=== PATIENT | female | born 1980 | race Caucasian/White ===

== ENCOUNTER 2020-01-19 16:18 | Outpatient (REF) | payer OTHER, SELFPAY ==
--- NOTE | 2020-01-19 16:28 | MM_ITS ---
EXAMINATION: MM SCREENING DIGITAL BREAST TOMOSYNTHESIS, BILATERAL CLINICAL INFORMATION: Screening. Asymptomatic. No prior breast imaging. Age 39. No known family history breast cancer. The lifetime risk of breast cancer based on the Tyrer-Cuzick Model is 11%. COMPARISON: None (current study represents initial baseline exam). TECHNIQUE: Digital breast tomosynthesis is performed in both the craniocaudal and mediolateral oblique views along with computer-aided detection (CAD). Synthesized 2D images are generated from the tomosynthesis. FINDINGS: There are scattered areas of fibroglandular density (ACR BI-RADS breast composition Category b). There are no significant masses, abnormal calcifications, or other abnormalities. The axilla and skin contours are unremarkable. MM/MM tomosynthesis screening BI IMPRESSION: No mammographic evidence of malignancy. ASSESSMENT: BI-RADS 1: Negative RECOMMENDATION: Routine annual mammography screening. This patient's information was entered into a reminder system with a target due date for their next mammogram.
== END 2020-01-19 16:19 | disposition home or self-care (01) ==
LOC: HO.MAMMO 16:18
PROVIDERS: PCP Internal Medicine; Visit Provider Internal Medicine
DX: Z12.31 Encounter for screening mammogram for malignant neoplasm of breast (principal)
CPT/HCPCS: 77063; 77067

== ENCOUNTER 2021-02-09 08:01 | Outpatient (REF) | payer OTHER, SELFPAY ==
--- NOTE | ~2021-02-09 | MM_ITS ---
EXAMINATION: MM SCREENING DIGITAL BREAST TOMOSYNTHESIS, BILATERAL CLINICAL INFORMATION: Screening. Asymptomatic. The lifetime risk of breast cancer based on the Tyrer-Cuzick Model is 13%. COMPARISON: Mammography: 01/19/2020 (baseline) TECHNIQUE: Digital breast tomosynthesis is performed in both the craniocaudal and mediolateral oblique views along with computer-aided detection (CAD). Synthesized 2D images are generated from the tomosynthesis. FINDINGS: There are scattered areas of fibroglandular density (ACR BI-RADS breast composition Category b). There are no significant masses, abnormal calcifications, or other abnormalities. Parenchymal pattern is similar to prior baseline exam. The axilla and skin contours are unremarkable. No significant changes. MM/MM tomosynthesis screening BI IMPRESSION: No mammographic evidence of malignancy. ASSESSMENT: BI-RADS 1: Negative RECOMMENDATION: Routine annual mammography screening. This patient's information was entered into a reminder system with a target due date for their next mammogram.
== END 2021-02-09 08:02 | disposition home or self-care (01) ==
LOC: HO.MAMMO 08:01
PROVIDERS: Visit Provider Internal Medicine
DX: Z12.31 Encounter for screening mammogram for malignant neoplasm of breast (principal)
CPT/HCPCS: 77063; 77067

== ENCOUNTER 2021-12-30 14:00 | Outpatient (RCR) | payer OTHER, SELFPAY | END 2022-01-02 13:43 | disposition home or self-care (01) | LOC: HO.PT 14:00 | PROVIDERS: PCP Internal Medicine; Visit Provider Podiatrist | DX: M76.62 Achilles tendinitis, left leg (principal); M24.272 Disorder of ligament, left ankle | CPT/HCPCS: 97035; 97110; 97112; 97140; 97161; 97530 ==

== ENCOUNTER 2022-02-14 07:58 | Outpatient (REF) | payer OTHER, SELFPAY ==
--- NOTE | ~2022-02-14 | MM_ITS ---
EXAMINATION: MM SCREENING DIGITAL BREAST TOMOSYNTHESIS, BILATERAL CLINICAL INFORMATION: Screening. Asymptomatic. The lifetime risk of breast cancer based on the Tyrer-Cuzick Model is 18.3%. COMPARISON: Mammography: February 09, 2021 and January 19, 2020 TECHNIQUE: Digital breast tomosynthesis is performed in both the craniocaudal and mediolateral oblique views along with computer-aided detection (CAD). Synthesized 2D images are generated from the tomosynthesis. FINDINGS: The breasts are heterogeneously dense, which may obscure small masses (ACR BI-RADS breast composition Category c). There are no significant masses, abnormal calcifications, or other abnormalities. MM/MM tomosynthesis screening BI IMPRESSION: No significant changes from prior exam. ASSESSMENT: BI-RADS 1: Negative RECOMMENDATION: Routine annual mammography screening. This patient's information was entered into a reminder system with a target due date for their next mammogram.
== END 2022-02-14 07:59 | disposition home or self-care (01) ==
LOC: HO.MAMMO 07:58
PROVIDERS: PCP Internal Medicine; Visit Provider Internal Medicine
DX: Z12.31 Encounter for screening mammogram for malignant neoplasm of breast (principal)
CPT/HCPCS: 77063; 77067

== ENCOUNTER 2022-11-30 18:50 | Outpatient (REF) | payer OTHER, SELFPAY ==
--- NOTE | ~2022-11-30 | MR_ITS ---
EXAMINATION: MR BREAST WITHOUT AND WITH CONTRAST, BILATERAL CLINICAL INFORMATION: High-risk screening. Family history of breast cancer. Dense breasts. COMPARISON: Mammography 02/14/2022 TECHNIQUE: Imaging was performed with a dedicated breast coil. Prior to the administration of contrast, bilateral axial T1 and bilateral axial T2 weighted sequences were obtained. After the uneventful administration of?8 mL of Gadavist, dynamic contrast-enhanced VIBRANT series through the breasts was attempted. Mapping error precluded postcontrast acquisition or subtracted sequences. Technically incomplete examination. FINDINGS: The breasts are comprised of heterogeneous fiber glandular parenchyma. No postcontrast imaging obtained. LEFT BREAST: On noncontrast sequences no gross abnormality. RIGHT BREAST: On noncontrast sequences, no gross abnormality. There is no suspicious internal mammary chain or axillary adenopathy. Limited views of the chest and abdomen are unremarkable. MR/MR breast BI wo/w con IMPRESSION: Technically incomplete examination. Repeat examination required. ASSESSMENT: LEFT BREAST: BI-RADS 0, incomplete exam. RIGHT BREAST: BI-RADS 0, incomplete exam. RECOMMENDATIONS: Repeat examination.
== END 2022-11-30 18:51 | disposition home or self-care (01) ==
LOC: HO.MRI 18:50
PROVIDERS: PCP Student in an Organized Health Care Education/Training Program; Visit Provider Obstetrics & Gynecology
DX: Z91.89 Other specified personal risk factors, not elsewhere classified (principal)
CPT/HCPCS: 77049; A9585

== ENCOUNTER 2023-02-21 08:15 | Outpatient (REF) | payer OTHER, SELFPAY | END 2023-02-21 08:16 | disposition home or self-care (01) | LOC: HO.MAMMO 08:15 | PROVIDERS: PCP Student in an Organized Health Care Education/Training Program; Visit Provider Internal Medicine | DX: Z12.31 Encounter for screening mammogram for malignant neoplasm of breast (principal) | CPT/HCPCS: 77063; 77067 ==

== ENCOUNTER → 2023-02-21 08:15 | Outpatient (BNV) | payer OTHER, SELFPAY | PROVIDERS: PCP Student in an Organized Health Care Education/Training Program; Visit Provider Radiology Diagnostic Radiology | DX: Z12.31 Encounter for screening mammogram for malignant neoplasm of breast (principal) | CPT/HCPCS: 77063; 77067 ==

== ENCOUNTER 2023-05-17 08:22 | Outpatient (REF) | payer OTHER, SELFPAY | END 2023-05-17 08:23 | disposition home or self-care (01) | LOC: HO.MRI 08:22 | PROVIDERS: PCP Student in an Organized Health Care Education/Training Program; Visit Provider Obstetrics & Gynecology | DX: Z13.89 Encounter for screening for other disorder (principal) ==

== ENCOUNTER 2023-11-26 16:19 | Outpatient (REF) | payer OTHER, SELFPAY ==
[2023-11-27 18:28] LABS: Epstein Barr Virus Early Ag Ab <9.00 U/mL
[2023-11-27 22:23] LABS: EBV-VCA IgM Ab <36.00 U/mL
== END 2023-11-26 16:20 | disposition home or self-care (01) ==
LOC: HO.LAB 16:19
PROVIDERS: Visit Provider Family Medicine
DX: R53.83 Other fatigue (principal); Z77.120 Contact with and (suspected) exposure to mold (toxic)
CPT/HCPCS: 36415; 83520; 86663; 86664; 86665

== ENCOUNTER 2024-02-26 08:00 | Outpatient (REF) | payer OTHER, SELFPAY | END 2024-02-26 08:01 | disposition home or self-care (01) | LOC: HO.MAMMO 08:00 | PROVIDERS: PCP Nurse Practitioner Family; Visit Provider Student in an Organized Health Care Education/Training Program | DX: Z12.31 Encounter for screening mammogram for malignant neoplasm of breast (principal) | CPT/HCPCS: 77063; 77067 ==

== ENCOUNTER → 2024-02-26 08:30 | Outpatient (BNV) | payer OTHER, SELFPAY | PROVIDERS: PCP Nurse Practitioner Family; Visit Provider Internal Medicine | DX: Z12.31 Encounter for screening mammogram for malignant neoplasm of breast (principal) | CPT/HCPCS: 77063; 77067 ==

== ENCOUNTER 2024-02-29 08:46 | Outpatient (AMB) | payer OTHER, SELFPAY ==
--- NOTE | 2024-02-29 08:49 | AM.OFFWIN_ITS ---
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 History of Present Illness - The patient is a 43-year-old female pr esenting with a concern of ear blockage sensation and persistent allergies. - The symptom of ear blockage presents b ilaterally with greater severity on the left. The patient describes it as a cotton feeling. - Discussion reveals a long-standing his tory of allergic rhinitis, with management including antihistamines and corticosteroid nasal sprays. - Environmental allergies include sensit ivity to mold, and the patient has a history of discontinued allergy shots due to lack of efficacy. - The patient reports impaired hearing a ffecting her occupational performance. - The presence of pets (dogs and cats) i s noted, though not directly linked to symptom exacerbation. - allergy to mold patient is requesting a referral to a specialist, she already has appointment Review of Systems - Ears: Reports sensation of blockage, p articularly on the left side. - Allergic/Immunologic: Reports history of allergic rhinitis and mold allergy; Denies recent onset or change in known allergies. 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 Management of the chronic allergic rhinitis and mold allergy includes persistent use of antihistamines and corticosteroid sprays, with continued reliance on environmental modifications like air purifiers. A referral for integrative medical professional placed as per patient's request Ear irrigation performed left ear with good results [facility] Social History Patient Tobacco Use Status: Never used Tobacco Review of Systems Const All systems reviewed & are unremarkable except as noted in HPI and below Physical Exam Vital Signs: Last Vital Signs Pulse 82 02/29/24 08:51 BP 122/80 02/29/24 08:51 Pulse Ox 99 02/29/24 08:51 Oxygen Delivery Method Room Air 02/29/24 08:51 BMI result Body Mass Index 28.3 Const General: no acute distress Orientation/consciousness: patient oriented x3 HEENT Other: Left ear blocked with cerumen Eyes General: appearance normal, both eyes and all related structures Resp Effort & Inspection: normal respiratory effort and able to speak in complete sentences Neuro General: patient oriented x3 Psych Mental Status: mental status grossly normal Office Procedures Cerumen Removal From which ear canal was the cerumen removed: left Removal: irrigation Notes: patient tolerated procedure well [id number] Irrigation/Lavage Assessment & Plan Assessment & Plan (1) Allergy to mold: Code(s): Z91.048 - Other nonmedicinal substance allergy status (2) Impacted cerumen, left ear: Code(s): H61.22 - Impacted cerumen, left ear (3) Hearing difficulty of left ear: Code(s): H91.92 - Unspecified hearing loss, left ear (4) Allergic contact dermatitis due to animal (cat) (dog) dander: Code(s): L23.81 - Allergic contact dermatitis due to animal (cat) (dog) dander (5) Chronic nasal congestion: Code(s): R09.81 - Nasal congestion Plan Chief Complaint The patient presents with ear blockage sensation and persistent allergies. History of Present Illness - The patient is a 43-year-old female presenting with a concern of ear blockage sensation and persistent allergies. - The symptom of ear blockage presents bilaterally with greater severity on the left. The patient describes it as a cotton feeling. - Discussion reveals a long-standing history of allergic rhinitis, with management including antihistamines and corticosteroid nasal sprays. - Environmental allergies include sensitivity to mold, and the patient has a history of discontinued allergy shots due to lack of efficacy. - The patient reports impaired hearing affecting her occupational performance. - The presence of pets (dogs and cats) is noted, though not directly linked to symptom exacerbation. - allergy to mold patient is requesting a referral to a specialist, she already has appointment Review of Systems - Ears: Reports sensation of blockage, particularly on the left side. - Allergic/Immunologic: Reports history of allergic rhinitis and mold allergy; Denies recent onset or change in known allergies. 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 Management of the chronic allergic rhinitis and mold allergy includes persistent use of antihistamines and corticosteroid sprays, with continued reliance on environmental modifications like air purifiers. A referral for integrative medical professional placed as per patient's request Ear irrigation performed left ear with good results Orders: Referrals Integrative Medicine Referral Z91.048 - Other nonmedicinal substance allergy status Coding Level of Care Code New Pt Level 4 (84461) Diagnoses Allergy to mold Z91.048 Impacted cerumen, left ear H61.22 Hearing difficulty of left ear H91.92 Allergic contact dermatitis due to animal (cat) (dog) dander L23.81 Chronic nasal congestion R09.81 CPT Codes Office Procedure - CPT: 88880-Kso Irrigation/Lavage ([id number])
[2024-02-29 08:51] VITALS: BP 122/80; PULSE 82; O2SAT 99; BMI 28.3
== END 2024-02-29 09:33 | disposition home or self-care (01) ==
PROVIDERS: PCP Nurse Practitioner Family; Visit Provider Internal Medicine
DX: R09.81 Nasal congestion (principal); H91.92 Unspecified hearing loss, left ear; Z91.048 Other nonmedicinal substance allergy status; L23.81 Allergic contact dermatitis due to animal (cat) (dog) dander; H61.22 Impacted cerumen, left ear

== ENCOUNTER → 2024-02-29 08:46 | Outpatient (BNVA) | payer OTHER, SELFPAY | PROVIDERS: PCP Nurse Practitioner Family; Visit Provider Internal Medicine | DX: H61.22 Impacted cerumen, left ear (principal); L23.81 Allergic contact dermatitis due to animal (cat) (dog) dander; R09.81 Nasal congestion; Z91.048 Other nonmedicinal substance allergy status | CPT/HCPCS: 69209 ==

== ENCOUNTER 2024-03-28 12:37 | Outpatient (AMB) | payer OTHER, SELFPAY ==
[2024-03-28 12:39] VITALS: BP 146/90; PULSE 84; RESP 16; TEMP 36.9; O2SAT 99; BMI 28.2
--- NOTE | 2024-03-28 12:39 | MHC.PC.OV ---
Vital Signs 03/28/24 12:39 Height 5 ft 7 in Weight 180 lb BMI 28.2 BP 146/90 H Blood Pressure Location Lt brachial Position Sitting Respiration 16 Pulse 84 Pulse Source Pulse Oximeter Temp 98.4 F Temp Source Oral Pulse Oximetry (%) 99 Intake Visit Reasons: Data [employer] Transfer from [facility] Allergies Corticosteroids (Glucocorticoids) Adverse Reaction (Verified 03/28/24 12:44) rash Medication List - Last Reconciled 03/28/24 by Pasquale Duggan MD ethynodiol diac-eth estradiol 1-50 mg-mcg ([place]) tabs PO thyroid (pork) ([place] Thyroid) 60 mg PO DAILY Tobacco use date assessed: 03/28/24 Dental Screening Dental Screen Date: 03/28/24 Did you have a dental visit in the last 12 months?: Yes Did you have a dental problem in the last 6 months where you did not have access to dental care?: Yes Was dental information given to patient?: Patient has dentist 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 History - Thyroid disorder, currently managed with 60 micrograms of thyroid medication, with biannual monitoring of blood levels to assess and adjust as necessary. - Follow-up care for mold intoxication is ongoing, which involves seeing a specialist at [facility] medicine, patient is requesting a referral. - Continues to manage allergies with umol-wav-hyqkwsz medication. - continued to feel fullness in both ears secondary to allergies Health Maintenance - Patient-reported vaccinations are up to date except for a tetanus vaccination, which was last administered in 2011 and will be updated during this visit. - Received an annual flu shot and COVID vaccine at the [email or web address] event. 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 - Reports no nutritional deficiencies or concerns with current health or activity level stated during the conversation. Patient Instructions - Follow fasting instructions for lab tests including withholding food for 10 hours while allowing water and daily medications. - Collect blood work next door without needing an appointment or paper; lab open Sunday to Sunday. - Receive tetanus booster as it is due. - continue allergy medication [id number]-hqqumnc Review of Systems - General: Denies nausea, vomiting, diarrhea, headaches, dizziness. - Dermatology: Denies rashes or concerning moles; had a flu and COVID shot. - Neurological: No headaches no dizziness - Ear nose throat: No sore throat no hearing difficulty no ear pain - Cardiovascular: No syncope, no chest pain, no palpitations - Gastrointestinal: No nausea vomiting or diarrhea - Endocrine: No polyuria polydipsia no heat intolerance - Genitourinary: No dysuria Physical Exam General: Cooperative, healthy appearing, comfortable, no acute distress Orientation: Patient oriented x3 Limitations: None Head: Normal to inspection Ears: Within normal limit visually, slight wax buildup noted, no significant issues Nose: Normal external nose present Face and sinus: Normal facial exam Eyes: Appearance normal, extraocular movement intact pupils reactive Neck: Normal visual inspection and supple Respiratory: Normal respiratory effort and able to speak in complete sentences. Clear to auscultation, no stridor Breast exam through OBGYN Cardiovascular: S1 and S2 GI: Normal to inspection. Soft to palpation and nontender Skin: Turgor normal, no acute findings, no rashes or moles that need to be checked Neuro: Patient oriented x3, motor sensory intact, balance intact, tandem pass Extremities: Normal to inspection [facility] Social History Housing: House Patient Tobacco Use Status: Never used Tobacco e-Cigarette/Vaping Use: Never Used service: No Current occupational status: employed Cognitive needs: No Hearing needs: No Vision needs: Yes Questionnaire PHQ-9 Over the last 2 weeks, how often have you been bothered by any of the following problems? 1. Little interest or pleasure in doing things: not at all 2. Feeling down, depressed, or hopeless: not at all 3. Trouble falling or staying asleep, or sleeping too much: not at all 4. Feeling tired or having little energy: nearly every day 5. Poor appetite or overeating: not at all 6. Feeling bad about yourself - or that you are a failure or have let yourself or your family down: not at all 7. Trouble concentrating on things, such as reading the newspaper or watching television: not at all 8. Moving or speaking so slowly that other people could have noticed. Or the opposite - being so fidgety or restless that you have been moving around a lot more than usual: not at all 9. Thoughts that you would be better off or of hurting yourself in some way: not at all Total score: 3 Depression Screening Interpretation: Negative Depression Screening Done: Yes 18574 - PHQ-9 Billing: Yes Source: Developed by Drs. Rosales Anthony, Megha Barboza, Lázaro Colon and colleagues, with an educational radha from [employer]. Thrive Questionnaire Date Thrive assessed: 03/28/24 I am a: Patient What is your living situation today?: I have a steady place to live Within the past 12 months, did the food you bought not last and you didn't have the money to get more?: Never true Within the past 12 months, did you worry whether your food would run out before you got money to buy more?: Never true Do you have trouble paying for medicines?: No Do you have trouble getting transportation to medical appointments?: No Do you have trouble paying your heating and electricity bill?: No Do you have trouble taking care of your child, family member or friend?: No Do you have trouble with day-to-day activities such as bathing, preparing meals, shopping, managing finances, etc.?: No Are you currently unemployed and looking for a job?: No Are you interested in more education?: No Please select the resources that you would like help with: None Currently or been in a relationship where the following occur: No concerns reported THRIVE Score: 0 AUDIT C Alcohol Use Questionnaire (AUDIT-C) 1. How often do you have a drink containing alcohol?: Never Total Score: 0 JOVANNY-7 AMB Questionnaire JOVANNY-7 Date JOVANNY - 7 assessed: 03/28/24 Feeling nervous, anxious, or on edge: 0 = Not at all Not being able to stop or control worryin = Not at all Worrying too much about different things: 0 = Not at all Trouble relaxin = Not at all Being so restless that it is hard to sit still: 0 = Not at all Becoming easily annoyed or irritable: 0 = Not at all Feeling afraid as if something awful might happen: 0 = Not at all Total JOVANNY-7 score (0-4 normal; 5-9 mild; 10-14 moderate; 15-21 severe): 0 Source: Developed by Drs. Rosales Anthony, Megha Barboza, Lázaro Colon and colleagues, with an educational radha from [employer]. JOVANNY-7 Assessment Billing JOVANNY-7 Assessment Tool: JOVANNY-7 Assessment 46096 Physical exam (Primary Care) Vital Signs: Last Vital Signs Temp 98.4 F 03/28/24 12:39 Pulse 84 03/28/24 12:39 Resp 16 03/28/24 12:39 BP 146/90 H 03/28/24 12:39 Pulse Ox 99 03/28/24 12:39 BMI result Body Mass Index 28.2 Tobacco/Smoking Status: Tobacco use Status Tobacco use date assessed 03/28/24 03/28/24 12:45 Patient Tobacco Use Status Never used Tobacco 03/28/24 12:45 e-Cigarette/Vaping Use Never Used 03/28/24 12:45 PHQ-9: PHQ-9 Score PHQ-9: Total score 3 03/28/24 13:06 Depression Screening Interpretation: Negative Thrive Assessment: Date of Thrive Assessment Date Thrive assessed 03/28/24 03/28/24 12:45 Currently or been in a relationship where the following occur: No concerns reported Immunizations Boostrix Tdap 2.5 Lf unit-8 mcg-5 Lf/0.5 mL intramuscular syringe Performing Provider: Pasquale Duggan MD Performing Location: [facility] [facility] Administered by: LEANDRO Parada on 03/28/24 13:05 Dose Route Admin Location Dispensed Lot Number Expiration Date [facility] Internal Medicine Hospitalist 0.5 mL IM Left Deltoid 0.5 mL [id number] 03/19/26 [id number] [employer] VIS Given Date VIS Provided VIS Publication Date 03/28/24 Single Vaccine 20 Eligibility Eligibility Date Funding Source Not [facility] Eligible 03/28/24 Private Coding Level of Care Code New Pt Level 3 (46345) New Pt Prev Care 40-64y(02029) Diagnoses Encounter for general adult medical examination with abnormal findings Z00.01 Chronic nasal congestion R09.81 Allergy to mold Z91.048 Other specified hypothyroidism E03.8 Overweight (BMI 25.0-29.9) E66.3 Fullness in both ears H93.8X3 Additional Codes PHQ-9 - 45030 - PHQ-9 Billing: Yes ([id number]) JOVANNY-7 Assessment Billing - JOVANNY-7 Assessment Tool: JOVANNY-7 Assessment 47173 ([id number]) Assessment & Plan Assessment & Plan (1) Encounter for general adult medical examination with abnormal findings: Code(s): Z00.01 - Encounter for general adult medical examination with abnormal findings Category: Medical (2) Chronic nasal congestion: Code(s): R09.81 - Nasal congestion Category: Medical (3) Allergy to mold: Code(s): Z91.048 - Other nonmedicinal substance allergy status Category: Medical (4) Other specified hypothyroidism: Code(s): E03.8 - Other specified hypothyroidism Category: Medical (5) Overweight (BMI 25.0-29.9): Code(s): E66.3 - Overweight Category: Medical (6) Fullness in both ears: Code(s): H93.8X3 - Other specified disorders of ear, bilateral Category: Medical Plan Chief Complaint The patient is here for an annual physical examination and to establish care. History - Thyroid disorder, currently managed with 60 micrograms of thyroid medication, with biannual monitoring of blood levels to assess and adjust as necessary. - Follow-up care for mold intoxication is ongoing, which involves seeing a specialist at [facility] medicine, patient is requesting a referral. - Continues to manage allergies with jril-zyu-xoomxts medication. - continued to feel fullness in both ears secondary to allergies Health Maintenance - Patient-reported vaccinations are up to date except for a tetanus vaccination, which was last administered in 2011 and will be updated during this visit. - Received an annual flu shot and COVID vaccine at the [email or web address] event. 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 - Reports no nutritional deficiencies or concerns with current health or activity level stated during the conversation. Patient Instructions - Follow fasting instructions for lab tests including withholding food for 10 hours while allowing water and daily medications. - Collect blood work next door without needing an appointment or paper; lab open Sunday to Sunday. - Receive tetanus booster as it is due. - continue allergy medication ykvz-spd-ynsesxg Orders: Orders Complete Blood Count Auto Diff Today E03.8 - Other specified hypothyroidism, E66.3 - Overweight, R09.81 - Nasal congestion, Z00.01 - Encounter for general adult medical examination with abnormal findings, Z91.048 - Other nonmedicinal substance allergy status Comprehensive [place]. Panel Fast Today E03.8 - Other specified hypothyroidism, E66.3 - Overweight, R09.81 - Nasal congestion, Z00.01 - Encounter for general adult medical examination with abnormal findings, Z91.048 - Other nonmedicinal substance allergy status Vitamin D 25-OH (D2 and D3) Today E03.8 - Other specified hypothyroidism, E66.3 - Overweight, R09.81 - Nasal congestion, Z00.01 - Encounter for general adult medical examination with abnormal findings, Z91.048 - Other nonmedicinal substance allergy status TDaP Immunization Today Z23 - Encounter for immunization Lipid Panel Today E03.8 - Other specified hypothyroidism, E66.3 - Overweight, R09.81 - Nasal congestion, Z00.01 - Encounter for general adult medical examination with abnormal findings, Z91.048 - Other nonmedicinal substance allergy status TSH reflex Free T4 Today E03.8 - Other specified hypothyroidism, E66.3 - Overweight, R09.81 - Nasal congestion, Z00.01 - Encounter for general adult medical examination with abnormal findings, Z91.048 - Other nonmedicinal substance allergy status UA CC w/rflx Micro + Cult Today E03.8 - Other specified hypothyroidism, E66.3 - Overweight, R09.81 - Nasal congestion, Z00.01 - Encounter for general adult medical examination with abnormal findings, Z91.048 - Other nonmedicinal substance allergy status IgE Antibody (Anti-IgE IgG) Today E03.8 - Other specified hypothyroidism, E66.3 - Overweight, R09.81 - Nasal congestion, Z00.01 - Encounter for general adult medical examination with abnormal findings, Z91.048 - Other nonmedicinal substance allergy status Referrals [facility] Referral Z91.048 - Other nonmedicinal substance allergy status Medications: New thyroid (pork) ([place] Thyroid) 60 mg PO DAILY 90 tabs 1RF
--- OUTSIDE RECORDS SUMMARY | 2024-03-28 12:55 | XMS_ITS | Clinical Summary ---
Author Organization [facility] [address] [facility] Address [address] [place] [address] Phone Care Team Providers Care Varnisher Plasticoater Name Role Phone Leigh Ann Mitchell MD Primary Care Provider [phone] Allergies Active Allergy Reactions Criticality Noted Date Comments Amoxicillin High 05/31/2022 Severe diarrhea Other Other Low 06/27/2007 Seasonal Allergies Corticosteroids Medications Medication Sig Dispensed Refills Start Date End Date Status ergocalciferol, vitamin D2, (VITAMIN D2 ORAL) Take by mouth. Active magnesium oxide-Mg AA chelate (Magnesium, oxide/AA chelate,) 300 mg capsule Take by mouth. Active ethynodiol-ethin yl estradiol (KELLNOR 1/50,ZOVIA 1/50E) 1-50 mg-mcg per tablet Take 1 Tablet by mouth daily for 360 days. Do not take placebos, Pt needs to have continous active pills Active fluticasone propionate (FLONASE) 50 mcg/actuation nasal spray 2 Sprays by Each Nare route daily for 360 days. Active levocetirizine (XYZAL) 5 mg tablet Take 5 mg by mouth every evening. Active thyroid, pork, (ARMOUR THYROID) 60 mg tablet TAKE 1 TABLET BY MOUTH EVERY DAY Active doxycycline (ADOXA) 100 mg tablet Take 1 tablet (100 mg total) by mouth 2 (two) times a day. for 10 days 05/07/2023 Active benzonatate (TESSALON) 100 mg capsule TAKE 1 CAPSULE BY MOUTH 3 TIMES DAILY NEEDED FOR COUGH FOR UP TO 7 DAYS. 07/01/2023 Active ethynodiol-ethin yl estradiol (KELNOR 35,ZOVIA 35E) 1-35 mg-mcg per tablet Take 1 tablet by mouth 1 (one) time each day. 28 tablet 03/07/2024 03/06/2025 Active ASCORBIC ACID, VITAMIN C, ORAL Take by mouth. 03/07/2024 Disco ntinued vit B complex no.12/niacin,B3, (VITAMIN B COMPLEX NO.12-NIACIN ORAL) Take by mouth. 03/07/2024 Discontinu ed Active Problems Problem Noted Date Diagnosed Date COVID-19 12/06/2021 Subclinical hypothyroidism 04/17/2019 Chronic fatigue syndrome 11/14/2018 Thyroid nodule 10/11/2018 Overview (01/18/2024): 09/2018, benign in appearance, recommended f/u US one year Obesity (BMI 30.0-34.9) 12/20/2016 IBS (irritable bowel syndrome) 02/22/2016 Overview (01/18/2024): Diarrhea predominant, childhood onset. Florinda Rosado infection 01/17/2016 Raynaud disease 04/12/2010 Genital herpes 03/17/2008 Allergic rhinitis 04/25/2007 Pure hypercholesterolemia 05/19/2005 Lumbago 05/19/2005 Chronic sinusitis 05/19/2005 Overview (01/18/2024): IMO update Encounters Date Type Department Care Team Description 03/07/2024 2:30 PM EST Office Visit Obstetrics and Gynecology [address] [address] Cathleen Ramirez, CATARINAM Encounter for annual physical examination excluding gynecological examination in a patient older than 17 years (Primary Dx); Family history of breast cancer; Encounter for nonprocreative genetic counseling; Elevated blood pressure reading in office without diagnosis of hypertension from Last 3 Months Immunizations Name Administration Dates Next Due Hep B, Unspecified 01/13/2007 Hepatitis B (Pmsmfgs-J-Ctetb , Recombivax HB-Adult) 19yo and older 04/23/1995,09/13/1994,07/10/1994 Influenza Quadravalent, MDCK , 0.5ml, with preservative (Flucelvax) 6mo and older 10/13/2019 Influenza trivalent, 0.5mL, preservative free (Fluarix; FluLaval; Fluzone) ages 6mo and older (Afluria) 3 years and older 01/08/2007 Influenza trivalent, with preservative (Fluzone; Afluria) 6mo and older 01/21/2018,12/01/2014,01/01/2014,2012 Influenza, Unspecified 11/10/2022 MMR, measles mumps and rubel la Live (Priorix; M-M-R II) 12mo and older 10/29/1991,10/19/1980 OPV 08/22/1984, 1,1979,1979 PPD Test 10/28/2014, 2,02/15/2012,2006,05/19/2005 Pfizer SARS-CoV-2 COVID-19, mRNA, LNP-S, preservative free 09/06/2021,03/22/2020 Td Tetanus diptheria (Tdvax) 7yo and older 07/28/2016,05/19/2005 Tdap Tetanus diptheria acell ular pertussis (Boostrix; Adacel) 7yo and older 05/04/2011 Surgical History Surgery Date Site/Laterality Comments OTHER SURGICAL HISTORY 1997 PROCEDURE: [place] ARTHROSCOPY ANKLE SURGICAL DEBRIDEMENT LIMITED; COMMENT: ligaments torn-left TONSILLECTOMY 1999 PROCEDURE: HISTORICAL TONSILLECTOMY OTHER SURGICAL HISTORY 1999 PROCEDURE: [place] 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 History of migraine headaches 02/22/2016 DX :History of migraine headaches; COMMENT: Childhood onset. Chronic fatigue syndrome 11/14/2018 DX:Hop Grower tanika fatigue syndrome Family History Medical History Relation Name Comments CABG Aunt age 50s Hyperlipidemia Father Melanoma Father Other: aortic valve replacement Father Other: leaky heart valve Father Other: spinal stenosis Father Other: throat ca Father Sleep apnea Father Stroke Father Throat cancer Father Prostate cancer Maternal Grandfather Stroke Maternal Grandfather Diabetes Mother Glaucoma Mother Hypertension Mother Breast cancer Other Dad side Hyperlipidemia Paternal Grandfather Stroke Paternal Grandfather Relation Name Status Comments Aunt Father Alive 2016 Maternal Grandfather Mother Alive 2016 Other Dad side Alive Paternal Grandfather Social History Tobacco Use Types Packs/Day Years Used Date Smoking Tobacco: Never Smokeless Tobacco: Never Alcohol Use Standard Drinks/Week Comments No 0 (1 standard drink = 0.6 oz pur e alcohol) Housing Instability Answer Date Recorde d Are you worried that in the next 2 months you may not have stable housing? No 02/29/2024 Food Access & Nutrition Answer Date Rec orded Do you have access to a vari ety of food including fruits and vegetables? No 02/29/2024 Access to Healthcare Answer Date Record ed Within the last 3 months, ho w many times did you visit the emergency department for your medical care? 0 02/29/2024 Health Literacy Answer Date Recorded How often do you need to hav e someone help you when you read instructions, pamphlets, or other written material from your doctor or pharmacy? Never 02/29/2024 Caregiver: How often do you need to have someone help you when you read instructions, pamphlets, or other written material from your doctor or pharmacy? Not on file 02/29/2024 Financial Risk Answer Date Recorded How hard is it for you to pa y for the very basics like food, housing, medical care, and air conditioning / heating? Not very hard 02/29/2024 Transportation Answer Date Recorded Has the lack of transportati on kept you from meetings, work, or from getting things needed for daily living? No Has the lack of transportati on kept you from medical appointments or from getting medications? No 02/29/2024 Social Isolation Answer Date Recorded How often do you feel lonely or isolated from those around you? Sometimes 02/29/2024 Food Risk Answer Date Recorded Within the past 12 months we worried whether our food would run out before we got money to buy more. Never true 02/29/2024 Within the past 12 months th e food we bought just didn't last and we didn't have money to get more. Never true 02/29/2024 Dependent Care Answer Date Recorded Do you need help finding or paying for care for your loved ones. For example, care management associate or elderly care for an older adult? No 02/29/2024 Education Answer Date Recorded Do you think completing more education or training, like finishing a GED, going to college, or learning a trade, would be helpful for you? No 02/29/2024 Employment and Income Answer Date Recor ded During the last four weeks, have you been actively looking for work? No 02/29/2024 Living Situation Answer Date Recorded What is your living situation? 0 02/29/2024 Sex and Gender Information Value Date Recorded Sex Assigned at Not on file Gender Identity Not on file Sexual Orientation Not on file Job Start Date Occupation Industry Not on file Not on file Not on file Obstetrics History Last Filed Vital Signs Vital Sign Reading Time Taken Comments Blood Pressure 148/102 03/07/2024 3:04 PM EST Pulse 73 03/07/2024 2:27 PM EST Temperature - - Respiratory Rate - - Oxygen Saturation - - Inhaled Oxygen Concentration - - Weight 81.2 kg (179 lb) 03/07/2024 2:27 PM EST Height 170.2 cm (5' 7 ) 06/06/2023 2:53 PM EDT Body Mass Index 28.04 06/06/2023 2:53 PM EDT Plan of Treatment Health Maintenance Due Date Last Done Comments Breast Cancer Screening 1979 HIV Screening 01/29/2022 COVID-19 Vaccine ( season) 2023 11/27/2021, 09/06/2021, 12/18/2020, Additional history exists Influenza Vaccine (#1) 2023 3, 11/27/2021, 11/13/2020, Additional history exists Depression Screening 02/28/2025 02/29/2024, 06/06/19 24 Social Influencers of Health Screening 02/28/2025 02/29/2024 Cervical Cancer Screening: HPV 08/10/2025 08/10/2020 DTaP,Tdap,and Td Vaccines (4 - Td or Tdap) 07/28/2026 07/28/2016, 05/04/2011, 05/19/2005 Cholesterol Screening (Lipid Panel) 09/22/2027 09/21/2022 IPV Vaccines Completed 08/22/1984, 12/28, 1979, Additional history exists MMR Vaccines Completed 10/29/1991, 10/19/1980 Hepatitis B Vaccines Completed 01/13/2007, 04/23/1995, 09/13/1994, Additional history exists Hepatitis C Screening Completed 01/13/2007 HIB Vaccines Aged Out No longer eligi ble based on patient's age to complete this topic HPV Vaccines Aged Out No longer eligi ble based on patient's age to complete this topic Hepatitis A Vaccines Aged Out No long er eligible based on patient's age to complete this topic Meningococcal ACWY Vaccine Aged Out N o longer eligible based on patient's age to complete this topic Pneumococcal Vaccine: Pediatrics (0 to 5 Years) and At-Risk Patients (6 to 64 Years) Aged Out No longer eligible based on patient's age to complete this topic RSV Immunization Patients Under 20 months Aged Out No longer eligible based on patient's age to complete this topic Varicella Vaccines Aged Out No longer eligible based on patient's age to complete this topic Procedures Procedure Name Priority Date/Time Associated Diagnosis Comments DEPRESSION SCREENING Routine 06/06/2023 LIPID PANEL Routine 09/21/2022 HPV Routine 08/10/2020 HEPATITIS C SCREENING Routine 01/13/2007 from Last 3 Months or Most Recently Relevant to Health Maintenance Results * Depression Screening (06/06/2023) Depression Screening abstracted Historical Provider MD LAXMI Aleman * (ABNORMAL) Lipid panel (09/21/2022) LDL/HDL Ratio 3 0 - 4 Triglycerides 174(A) 0 - 150 mg/dL Cholesterol 227(A) 0 - 200 mg/dL HDL 78 40 mg/dL LDL Cholesterol 115(A) 0 - 100 mg/dL Blood Venous blood specimen / Unknown Historical Provider LAB BLOOD ORDERAB LES * Cervical Cancer Screening: HPV (08/10/2020) [facility] Cervical Cancer Screening: HPV negative interpretation abstracted Historical Provider MD LAXMI JULES E * Hepatitis C Screening (01/13/2007) [facility] Hepatitis C Screening negative interpretation abstracted Historical Provider MD LAXMI Aleman from Last 3 Months or Most Recently Relevant to Health Maintenance Care Teams Varnisher Plasticoater Relationship Specialty Start Date End Date Leigh Ann Mitchlel MD [address] [place] [id number] PCP - General 08/13/23
--- OUTSIDE RECORDS SUMMARY | 2024-03-28 12:56 | XMS_ITS | Encounter Summary ---
Author Organization [facility] Address [address] [place] [address] Care Team Providers Care Cook Syrup Maker Name Role Phone Leigh Ann Mitchell MD Primary Care Provider [phone] Reason for Visit * Reason Comments Gynecologic Exam Encounter Details Date Type Department Care Team (Latest Contact Info) Description 03/07/2024 2:30 PM EST Office Visit Obstetrics and Gynecology - [place] [address] [place] [address] Cathleen Ramirez, [facility] [address] [place] [address] Encounter for annual physical examination excluding gynecological examination in a patient older than 17 years (Primary Dx); Family history of breast cancer; Encounter for nonprocreative genetic counseling; Elevated blood pressure reading in office without diagnosis of hypertension Social History Tobacco Use Types Packs/Day Years [...] care for your loved ones. For example, childcare director or elderly care for an older adult? [...] file Not on file Not on file documented as of this encounter Last Filed Vital Signs Vital Sign Reading Time Taken Comments Blood Pressure 148/102 03/07/2024 3:04 PM EST Pulse 73 03/07/2024 2:27 PM EST Temperature - - Respiratory Rate - - Oxygen Saturation - - Inhaled Oxygen Concentration - - Weight 81.2 kg (179 lb) 03/07/2024 2:27 PM EST Height - - Body Mass Index 28.04 06/06/2023 2:53 PM EDT documented in this encounter Ordered Prescriptions Prescription Sig Dispensed Refills Start Date End Da te ethynodiol-ethinyl estradiol (KELNOR 35,ZOVIA 35E) 1-35 mg-mcg per tablet Take 1 tablet by mouth 1 (one) time each day. 28 tablet 03/07/2024 03/06/2025 documented in this encounter Progress Notes * Cathleen Ramirez CNM - 03/07/2024 2:30 PM EST Subjective Patient ID: Bere Gregg is a 43 y.o. female. Chief Complaint Patient presents with Gynecologic Exam Presents as established, she denies complaints. She is currently on OCPs Relationship: single, prefers male Bc: ocps happy with method Std screening: declines Mammo: 01/2024 pending results at [facility], mri recently done last yr neg pt declines repeat at [facility] Colonoscopy: plan for [facility] Family ca: pa breast ca >50, [facility] 08/2022 neg, tc score 21% risk high Activity: walks 2x/wk , swimming 3d/wk, adequate diet, Elevated bp today's visit, will plan repeat 2nd reading 150/98, Pt aware risk with cocs will plan for f/u 2020 pap neg/hpv neg Active Ambulatory Problems Diagnosis Date Noted Pure hypercholesterolemia 05/19/2005 Lumbago 05/19/2005 Allergic rhinitis 04/25/2007 Chronic sinusitis 05/19/2005 Genital herpes 03/17/2008 Raynaud disease 04/12/2010 IBS (irritable bowel syndrome) 02/22/2016 Obesity (BMI 30.0-34.9) 12/20/2016 Thyroid nodule 10/11/2018 Subclinical hypothyroidism 04/17/2019 Chronic fatigue syndrome 11/14/2018 COVID-19 12/06/2021 Florinda Rosado infection 01/17/2016 Resolved Ambulatory Problems Diagnosis Date Noted No Resolved Ambulatory Problems Past Medical History: Diagnosis Date History of migraine headaches 02/22/2016 Unspecified sinusitis (chronic) 05/19/2005 Review of Systems Constitutional: Negative for activity change and appetite change. HENT: Negative for rhinorrhea and sore throat. Eyes: Negative for pain and discharge. Respiratory: Negative for cough, chest tightness and shortness of breath. Cardiovascular: Negative for chest pain and palpitations. Gastrointestinal: Negative for abdominal pain, constipation, diarrhea and vomiting. Endocrine: Negative. Genitourinary: Negative for difficulty urinating, dyspareunia, dysuria, frequency, menstrual problem, pelvic pain, urgency, vaginal bleeding, vaginal discharge and vaginal pain. Musculoskeletal: Negative for back pain, joint swelling, neck pain and neck stiffness. Skin: Negative. Breast: Negative for breast skin changes, nipple discharge, breast lump or mass and breast pain. Neurological: Negative for dizziness, syncope, speech difficulty, weakness, light-headedness, numbness and headaches. Psychiatric/Behavioral: Negative for behavioral problems, hallucinations and sleep disturbance. Thepatient is not nervous/anxious. Objective Vitals: 03/07/24 1504 BP: (!) 148/102 Pulse: Physical Exam Constitutional: Appearance: Normal appearance. Cardiovascular: Rate and Rhythm: Normal rate and regular rhythm. Pulmonary: Effort: Pulmonary effort is normal. Breath sounds: Normal breath sounds. Chest: Chest wall: No mass, swelling, tenderness or edema. Breasts: Right: Normal. No swelling, bleeding or inverted nipple. Left: Normal. No swelling, bleeding or inverted nipple. Abdominal: General: Abdomen is flat. Palpations: Abdomen is soft. Genitourinary: General: Normal vulva. Pubic Area: No rash. Labia: Right: No rash or tenderness. Left: No rash or tenderness. Urethra: No urethral pain or urethral lesion. Vagina: Normal. No signs of injury. No vaginal discharge, erythema or tenderness. Cervix: No cervical motion tenderness or discharge. Uterus: Not fixed and not tender. Adnexa: Right: No mass or tenderness. Left: No mass or tenderness. Musculoskeletal: Cervical back: Normal range of motion. Lymphadenopathy: Upper Body: Right upper body: No supraclavicular or axillary adenopathy. Left upper body: No supraclavicular or axillary adenopathy. Neurological: Mental Status: She is alert. Assessment/Plan Encounter for annual physical examination excluding gynecological examination in a patient older than 17 years (Primary) Family history of breast cancer Encounter for nonprocreative genetic counseling Elevated blood pressure reading in office without diagnosis of hypertension Other orders - ethynodiol-ethinyl estradiol (KELNOR ,ZOVIA E) 1-35 mg-mcg per tablet; Take 1 tablet by mouth 1 (one) time each day. Dispense: 28 tablet; Refill: 0 Return 3wks for bp check Rx for 1mo of cocs reviewed aches and when to stop ocps and to call practice F/u prn documented in this encounter Plan of Treatment Not on file documented as of this encounter Visit Diagnoses Diagnosis Encounter for annual physical examination excluding gynecological examination in a patient older than 17 years- Primary Family history of breast cancer Family history of malignant neoplasm of breast Encounter for nonprocreative genetic counseling Elevated blood pressure reading in office without diagnosis of hypertension documented in this encounter Discontinued Medications Medication Sig Discontinue Reason Start Date End Da te ASCORBIC ACID, VITAMIN C, ORAL Take by mouth. 03/07/2024 vit B complex no.12/niacin,B3, (VITAMIN B COMPLEX NO.12-NIACIN ORAL) Take by mouth. 03/07 documented as of this encounter Historical Medications * This list may reflect changes made after this encounter. Medication Sig Dispensed Refills Start Date End Date benzonatate (TESSALON) 100 mg capsule TAKE 1 CAPSULE BY MOUTH 3 TIMES DAILY NEEDED FOR COUGH FOR UP TO 7 DAYS. 07/01/2023 doxycycline (ADOXA) 100 mg tablet Take 1 tablet (100 mg total) by mouth 2 (two) times a day. for 10 days 05/07/2023 added in this encounter Additional Health Concerns Assessment Noted Time PHQ-9 Depression Total Score: 0 02/28/19 25 12:52 PM EST documented as of this encounter Care Teams Cook Syrup Maker Relationship Specialty Start Date End Date Leigh Ann Mitchell MD [address] [place] [id number] PCP - General 08/13/23 documented as of this encounter
== END 2024-03-28 13:12 | disposition home or self-care (01) ==
PROVIDERS: PCP Internal Medicine; Visit Provider Internal Medicine
DX: Z00.00 Encounter for general adult medical examination without abnormal findings (principal); R09.81 Nasal congestion; Z91.048 Other nonmedicinal substance allergy status; E66.3 Overweight; Z68.28 Body mass index [BMI] 28.0-28.9, adult; E03.8 Other specified hypothyroidism; H93.8X3 Other specified disorders of ear, bilateral; Z23 Encounter for immunization

== ENCOUNTER → 2024-03-28 12:37 | Outpatient (BNVA) | payer OTHER, SELFPAY | PROVIDERS: PCP Internal Medicine; Visit Provider Internal Medicine | DX: Z00.01 Encounter for general adult medical examination with abnormal findings (principal); Z23 Encounter for immunization; R09.81 Nasal congestion; E03.8 Other specified hypothyroidism; E66.3 Overweight; H93.8X3 Other specified disorders of ear, bilateral; Z79.899 Other long term (current) drug therapy; Z91.048 Other nonmedicinal substance allergy status | CPT/HCPCS: 90471; 90715; 96127 ==

== ENCOUNTER 2024-05-02 06:11 | Outpatient (REF) | payer OTHER, SELFPAY ==
--- OUTSIDE RECORDS SUMMARY | 2024-05-02 06:14 | XMS_ITS | Continuity of Care Document ---
Author Organization [facility] Address [address] [place] [address] Phone Care Team Providers Care Guest Relations Receptionist Name Role Phone Connor Trevino MD Unavailable Unavailabl e Procedures Procedure Date Post Op Office Visit Advance Directives Directive Yes / No Effective Date File Name No Information Encounters Encounter Description Practice Location Reason(s) For Visit Diagnoses Date Provider Providers Copied on Encounter [facility], [address], [place], [id number] , tel: [phone] [facility] Chr Ethmoidal Sinusitis 6 Belinda Ryan. [address], [facility] [address], [place], [id number], [place]. tel:[phone] [facility], [address], [place], [id number] , tel: [phone] [facility] Ac Ethmoidal Sinusitis 0 6 Belinda Ryan. [address], [address], [place], [place], [address], [place]. tel:[phone] [facility], [address], [place], [id number] , tel: [phone] [facility] Dysfunct Eustachian TubeChr Maxillary Sinusitis May- 5200 6 Belinda Ryan. [address], [address], [place], [place], [id number], [place]. tel:[phone] [facility], [address], [place], [place], [address] , [place] tel: [phone] [facility] Allergic Rhinitis Nos Apr- 6 Fabian Manriquez. [address], [address], [place], [place], [address], [place]. tel:[phone] Referring Provider: Mitra Peralta MD, [address] [facility] [address], [place], [address]. tel:[phone] [facility], [address], [place], [place], [id number] , [place] tel: [phone] [facility] CoughChr Maxillary Sinusitis 6 Belinda Ryan. [address], [address], [place], [place], [address], [place]. tel:[phone] [facility], [address], [place], [place], [address] , [place] tel: [phone] [facility] Allergic Rhinitis Nos 6 Sky Muniz. [address] [place], [place], [id number], [place]. tel:[phone] [facility], [address], [place], [place], [address] , [place] tel: [phone] [facility] Chr Ethmoidal Sinusitis 6 Belinda Ryan. [address], [address], [place], [place], [address], [place]. tel:[phone] [facility], [address], [place], [place], [address] , [place] tel: [phone] [facility] Chr Ethmoidal Sinusitis 6 Belinda Ryan. [address], [address], [place], [place], [address], [place]. tel: [phone] [facility], [address], [place], [place], [address] , [place] tel: [phone] [facility] Allergic Rhinitis Nos 6 Sky Muniz. [address] [place], [place], [id number], [place]. tel: [phone] [facility], [address], [place], [place], [address] , [place] tel: [phone] [facility] Chr Ethmoidal Sinusitis 6 Belinda Ryan. [address], [facility] 201, [place], [place], [address], [place]. tel: [phone] [facility], [address], [place], [place], [address] , [place] tel: [phone] [facility] Chr Ethmoidal Sinusitis 0 6 Belinda Ryan. [address], [facility] 201, [place], [place], [address], [place]. tel: [phone] [facility], [address], [place], [place], [address] , [place] tel: [phone] [facility] Chr Ethmoidal Sinusitis 6200 6 Belinda Ryan. [address], [facility] 201, [place], [place], [address], [place]. tel: [phone] [facility], [address], [place], [place], [address] , [place] tel: [phone] [facility] Chr Ethmoidal Sinusitis Feb- 4200 6 Belinda Ryan. 200 [facility] [address], [address], [place], [place], [address], [place]. tel: [phone] [facility], [address], [place], [place], [address] , [place] tel: [phone] [facility] Deviated Nasal Septum 3 0200 5 Belinda Ryan. 200 [facility] [address], [address], [place], [place], [address], [place]. tel: [phone] [facility], [address], [place], [place], [address] , [place] tel: [phone] [facility] Allergic Rhinitis Nos 2 0200 5 Fabian Manriquez. [address], [address], [place], [place], [address], [place]. tel:[phone] [facility], [address], [place], [place], [address] , [place] tel: [phone] [facility] HeadacheChr Ethmoidal SinusitisAcut e Otitis Externa Nec 0 2200 5 Belinda Ryan. 200 [facility] [address], [address], [place], [place], [address], [place]. tel: [phone] [facility], [address], [place], [place], [address] , [place] tel: [phone] [facility] Allergic Rhinitis Nos 2200 5 Fabian Manriquez. [address], [address], [place], [place], [address], [place]. tel:[phone] Referring Provider: Mitra Peralta MD, [address] [facility] [address], [place], [address]. tel:[phone] [facility], [address], [place], [place], [address] , [place] tel: [phone] [facility] Allergic Rhinitis Nos Oct-2 5 Fabian Manriquez. [address], [facility] 205, [place], [place], [address], [place]. tel:[phone] [facility], [address], [place], [place], [address] , [place] tel: [phone] [facility] Hypertrph Nasal TurbinatChron ic RhinitisDevia osvaldo Nasal Septum Sep-2 5 Belinda Ryan. [address], [address] [place] [address], [id number], [place]. tel:[phone] [facility], [address], [place], [place], [address] , [place] tel: [phone] [facility] Allergic Rhinitis Nos Sep-1 5 Fabian Manriquez. [address], [facility] 205, [place], [place], [address], [place]. tel:[phone] [facility], [address], [place], [place], [address] , [place] tel: [phone] [facility] Hypertrph Nasal TurbinatDevia osvaldo Nasal SeptumChronic RhinitisDysfu nct Eustachian Tube Sep-0 200 5 Belinda Ryan. 200 [facility] [address], [address], [place], [place], [address], [place]. tel:[phone] [facility], [address], [place], [place], [address] , [place] tel: [phone] [facility] Allergic Rhinitis Nos 5 Fabian Manriquez. [address], [address], [place], [place], [address], [place]. tel:[phone] [facility], [address], [place], [place], [address] , [place] tel: [phone] [facility] Dysfunct Eustachian Tube 5 Belinda Ryan. 200 [facility] [address], [address] [place] [address], [id number], . tel:[phone] [facility], [address], [place], [place], [address] , [place] tel: [phone] [facility] Hypertrph Nasal TurbinatChron ic Rhinitis 5 Belinda Ryan. 200 [facility] [address], [address], [place], [address], [place]. tel:[phone] [facility], [address], [place], [place], [address] , [place] tel: [phone] [facility] Allergic Rhinitis Nos 0 5 Fabian Manriquez. [address], [address], [place], [place], [address], [place]. tel:[phone] [facility], [address], [place], [place], [address] , [place] tel: [phone] [facility] Hypersomni W Sleep ApneaChronic RhinitisDevia osvaldo Nasal Septum 5 Belinda Ryan. 200 [facility] [address], [address], [facility] [place], [address], [place]. tel:[phone] [facility], [address], [place], [place], [address] , [place] tel: [phone] [facility] Allergic Rhinitis Nos 2-200 5 Fabian Manriquez. [address], [address], [place], [place], [address], [place]. tel:[phone] [facility], [address], [place], [place], [address] , [place] tel: [phone] [facility] Allergic Rhinitis Nos 4-200 5 Fabian Manriquez. [address], [address], [place], [place], [address], [place]. tel:[phone] [facility], [address], [place], [place], [address] , [place] tel: [phone] [facility] Acute Nasopharyngit isChronic Rhinitis May-2 5-200 5 No Information [facility], [address], [place], [place], [address] , [place] tel: [phone] [facility] Allergic Rhinitis Nos May-2 1-200 5 Fabian Manriquez. [address], [address], [place], [place], [address], [place]. tel:[phone] [facility], [address], [place], [place], [address] , [place] tel: [phone] [facility] Allergic Rhinitis Nos Apr-2 1-200 5 Fabian Manriquez. [address], [address], [place], [place], [address], [place]. tel:[phone] [facility], [address], [place], [place], [address] , tel: [phone] [facility] Allergic Rhinitis Nos 5 Fabian Manriquez. [address] [facility] [address], [place], [address], . [phone] [facility], [address], [place], [place], [address] , tel: [phone] [facility] Allergic Rhinitis Nos 5 Fabian Manriquez. [address] , [facility] [address], [place], [place], [address], [place]. tel:[phone] Family History Family Member Type Diagnosis Age At Onset No Information Payers Payer name Insurance type Covered republican ID Authoriza tion(s) No Information Social History Type Description Quantity Date Captured Comments Sex Female Smoking Status No Information Chief Complaint And Reason For Visit No Information Reason For Referral Reason For Referral No Information History Of Present Illness Encounter Date Complaint History Of Prese nt Illness No Information Functional Status Date Functional Assessmen t No Information Instructions Date Instruction Additional Infor mation No Information Assessments Type Assessment Date No Information Patient Care Teams Name Effective Dates (start - stop) Status Members No Information
[2024-05-02 06:37] LABS: MANUAL DIFF FLAG NO
[2024-05-02 07:39] LABS: Appearance Urine Clear; Color Urine Yellow; Glucose Urine UA Negative (Negative); Leukocyte Esterase Urine Negative (Negative); Nitrite Urine Negative (Negative); Specific Gravity - Urine <= 1.005 (1.005-1.025); Urine Blood Negative (Negative); Urine Ketones Negative (Negative); Urine Protein Negative (Neg-Trace)
[2024-05-02 07:56] LABS: Basophils Absolute Auto 0.1 X10*3/uL (0.0-0.2); Basophils Percent Auto 0.9 % (0-2); Eosinophils Absolute Auto 0.5 X10*3/uL (0.0-0.4); Eosinophils Percent Auto 6.4 % (0-4); Hematocrit 43.4 % (37.0-47.0); Hemoglobin 14.5 g/dl (12.0-16.0); Imm Gran Abs Auto 0.02 X10*3/uL (0.00-0.03); Imm Gran Pct Auto 0.3 % (0.0-0.4); Lymphocytes Absolute Auto 2.3 X10*3/uL (1.2-4.9); Lymphocytes Percent Auto 29.2 % (20-40); Mean Corpuscular HGB Conc 33.4 g/dl (31.0-35.0); Mean Corpuscular Hemoglobin 29.5 pg (27.0-33.0); Mean Corpuscular Volume 88.2 fL (80.0-98.0); Monocytes Absolute Auto 0.6 X10*3/uL (0.1-1.2); Monocytes Percent Auto 7.7 % (2-11); Neutrophils Absolute Auto 4.4 x10*3/uL (2.0-8.3); Neutrophils Percent Auto 55.5 % (45-73); Platelet Count 324 X10*3/uL (160-400); Red Blood Count 4.92 X10*6/uL (4.20-5.50); Red Cell Distribution Width 12.4 % (11.0-16.0); White Blood Count 7.9 X10*3/uL (4.8-10.8)
[2024-05-02 08:15] LABS: Alanine Aminotransferase 29 U/L (0-31); Albumin Level 3.9 g/dL (3.5-5.0); Alkaline Phosphatase 57 U/L (39-117); Anion Gap 9 (12-20); Aspartate Amino Transferase 22 U/L (5-31); Bilirubin Total 0.6 mg/dL (0.0-1.0); Blood Urea Nitrogen 13 mg/dL (9-16); Calcium 9.1 mg/dL (8.4-10.2); Carbon Dioxide 29 mmol/L (22-29); Chloride 105 mmol/L (96-108); Cholesterol 236 mg/dL (<200); Estimated Glomerular Filt Rate > 60; Glucose Fasting 102 mg/dL (60-99); HDL Cholesterol 58 mg/dL (>40); LDL Cholesterol Calculated 158 mg/dL (<100); Potassium 4.2 mmol/L (3.3-5.1); Sodium 139 mmol/L (135-145); Total Protein 7.5 g/dL (6.5-8.0); Triglycerides 103 mg/dL (<150)
[2024-05-08 23:24] LABS: Vitamin D 25-OH, D2 <4 ng/mL; Vitamin D 25-OH, D3 47 ng/mL; Vitamin D 25-OH, Total 47 ng/mL (30-100)
[2024-05-10 02:09] LABS: IgE Antibody (Anti-IgE IgG) 33 ng/mL (<168)
== END 2024-05-02 06:12 | disposition home or self-care (01) ==
LOC: HO.LAB 06:11
PROVIDERS: PCP Internal Medicine; Visit Provider Internal Medicine
DX: Z00.01 Encounter for general adult medical examination with abnormal findings (principal); R09.81 Nasal congestion; Z91.048 Other nonmedicinal substance allergy status; E03.8 Other specified hypothyroidism; E66.3 Overweight
CPT/HCPCS: 36415; 80053; 80061; 81003; 82306; 83520; 84443; 85025

== ENCOUNTER 2024-05-08 08:03 | Outpatient (AMB) | payer OTHER, SELFPAY ==
--- OUTSIDE RECORDS SUMMARY | 2024-05-08 08:11 | XMS_ITS | Clinical Summary ---
Author Organization [facility] [place] [address] [facility] lding Address [address] [place] [address] Phone Care Team Providers Care Packager Machine Name Role Phone Leigh Ann Mitchell MD Primary Care Provider [phone] Allergies Active Allergy Reactions Criticality Noted Date Comments Amoxicillin High 05/31/2022 Severe diarrhea Other Other Low 06/27/2007 Seasonal Allergies Corticosteroids Medications ergocalciferol, vitamin D2, (VITAMIN D2 ORAL) Take by mouth. Active magnesium oxide-Mg AA chelate (Magnesium, oxide/AA chelate,) 300 mg capsule Take by mouth. Active fluticasone propionate (FLONASE) 50 mcg/actuation nasal [...] (two) times a day. for 10 days 4 Active benzonatate (TESSALON) 100 mg capsule TAKE 1 CAPSULE BY MOUTH 3 TIMES DAILY NEEDED FOR COUGH FOR UP TO 7 DAYS. 4 Active norethindrone (CHING,Ginger MATUTE MICRONOR ) 0.35 mg tablet Take 1 tablet (0.35 mg total) by mouth 1 (one) time each day. 28 tablet 11 5 04/08/19 26 Active ethynodiol-ethi nyl estradiol (KELLNOR 1/50,ZOVIA 1/50E) 1-50 mg-mcg per tablet Take 1 Tablet by mouth daily for 360 days. Do not take placebos, Pt needs to have continous active pills 04/09/19 25 Discontinu ed(Formula ry change) ethynodiol-ethi nyl estradiol (KELNOR 1/35,ZOVIA 1/35E) 1-35 mg-mcg per tablet Take 1 tablet by mouth 1 (one) time each day. 28 tablet 5 04/09/19 25 Discontinu ed(Formula ry change) Active Problems Problem Noted Date Diagnosed Date [...] EST Office Visit Obstetrics and Gynecology - [address] [address] Cathleen Ramirez, [place] Encounter for annual physical examination excluding gynecological examination in a patient older than 17 years (Primary Dx); Family history of breast cancer; Encounter for nonprocreative genetic counseling; Elevated blood pressure reading in office without diagnosis of hypertension from Last 3 Months Immunizations Name Administration Dates Next Due Hep B, Unspecified 01/13/2007 Hepatitis B (Umseqhs-I-Yvofw , Recombivax HB-Adult) 19yo and older 04/23/1995,09/13/1994,07/10/1994 [...] Site/Laterality Comments OTHER SURGICAL HISTORY 1997 PROCEDURE: TX ARTHROSCOPY ANKLE SURGICAL DEBRIDEMENT LIMITED; COMMENT: ligaments torn-left TONSILLECTOMY 1999 PROCEDURE: HISTORICAL TONSILLECTOMY OTHER SURGICAL HISTORY 1999 PROCEDURE: 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 For example, children counselor or elderly care for an older adult? [...] What is your living situation? 0 02/29/2024 Comments Unknown Sex and Gender Information Value Date Recorded Sex Assigned at Not on file Legal Sex Female 10:28 PM EST Gender Identity Not on file Sexual Orientation Not on file Obstetrics History Last Filed [...] Additional history exists Influenza Vaccine (#1) 2023 , 11/27/2021, 11/13/2020, Additional history exists Depression Screening 02/28/2025 02/29/2024, 06/06/19 Social Influencers of Health Screening 02/28/2025 02/29/2024 [...] patient's age to complete this topic Meningococcal B Vacine Aged Out No lo nger eligible based on patient's age to complete [...] * Depression Screening (06/06/2023) Depression Screening abstracted [facility] Provider HEALTH MAINTENANCE Final Result * (ABNORMAL) Lipid panel (09/21/2022) [facility] LDL/HDL Ratio 3 0 - 4 Triglycerides 174(A) 0 - 150 mg/dL Cholesterol 227(A) 0 - 200 mg/dL HDL 78 >=40 mg/dL LDL Cholesterol 115(A) 0 - 100 mg/dL Blood Venous blood specimen / Unknown Result [facility] Provider LAB BLOOD ORDERABLES Ghada l Result * Cervical Cancer Screening: HPV (08/10/2020) [facility] Cervical Cancer Screening: HPV negative interpretation abstracted Result [facility] Provider HEALTH MAINTENANCE Final Result * Hepatitis C Screening (01/13/2007) [facility] Hepatitis C Screening negative interpretation abstracted Result [facility] Provider HEALTH MAINTENANCE Final Result from Last 3 Months or Most Recently Relevant to Health Maintenance Insurance [facility] Care Teams Packager Machine Relationship Specialty Start Date End Date Leigh Ann Mitchell MD PCP - General 08/13/23
--- OUTSIDE RECORDS SUMMARY | 2024-05-08 08:11 | XMS_ITS | Continuity of Care Document ---
Author Organization [facility] Address [address] [place] [address] Phone Care Team Providers Care National Sales Associate Name Role Phone Connor Trevino MD Unavailable Unavailabl e Procedures Procedure Date Post Op Office Visit Advance Directives Directive Yes / No Effective Date File Name No Information Encounters Encounter Description Practice Location Reason(s) For Visit Diagnoses Date Provider Providers Copied on Encounter [facility], [address], [place], [id number] , tel: [phone] [facility] Ethmoidal Sinusitis 6 Belinda Ryan. [address], [facility] [address], [place], [id number], [place]. tel:[phone] [facility], [address], [place], [id number] , tel: [phone] [facility] Ac Ethmoidal Sinusitis 0 6 Belinda Ryan. [address], [address], [place], [place], [id number], [place]. tel:[phone] [facility], [address], [place], [id number] , tel: [phone] [facility] Dysfunct Eustachian TubeChr Maxillary Sinusitis May- 5200 6 Belinda Ryan. [address], [address], [place], [place], [id number], [place]. tel:[phone] [facility], [address], [place], [place], [id number] , [place] tel: [phone] [facility] Allergic Rhinitis Nos Apr- 6 Fabian Manriquez. [address], [address], [place], [place], [id number], [place]. tel:[phone] Referring Provider: Mitra Peralta MD, [address] [facility] [place] [address], [place], [address]. tel:[phone] [facility], [address], [place], [place], [id number] , [place] tel: [phone] [facility] CoughChr Maxillary Sinusitis 6 Belinda Ryan. [address], [address], [place], [place], [id number], [place]. tel:[phone] [facility], [address], [place], [place], [id number] , [place] tel: [phone] [facility] Allergic Rhinitis Nos 6 Sky Muniz. [address] [place], [place], [id number], [place]. tel:[phone] [facility], [address], [place], [place], [address] , [place] tel: [phone] [facility] Ethmoidal Sinusitis 6 Belinda Ryan. [address], [address], [place], [place], [id number], [place]. tel:[phone] [facility], [address], [place], [place], [address] , [place] tel: [phone] [facility] Ethmoidal Sinusitis 6 Belinda Ryan. [address], [address], [place], [place], [id number], [place]. tel: [phone] [facility], [address], [place], [place], [id number] , [place] tel: [phone] [facility] Allergic Rhinitis Nos 6 Sky Muniz. [address] [place], [place], [id number], [place]. tel: [phone] [facility], [address], [place], [place], [address] , [place] tel: [phone] [facility] Ethmoidal Sinusitis 6 Belinda Ryan. [address], [facility] 201, [place], [place], [id number], [place]. tel: [phone] [facility], [address], [place], [place], [address] , [place] tel: [phone] [facility] Chr Ethmoidal Sinusitis 0 6 Belinda Ryan. [address], [facility] 201, [place], [place], [address], [place]. tel: [phone] [facility], [address], [place], [place], [address] , [place] tel: [phone] [facility] Chr Ethmoidal Sinusitis 6200 6 Belinda Ryan. [address], [facility] 201, [place], [place], [address], [place]. tel: [phone] [facility], [address], [place], [place], [address] , [place] tel: [phone] [facility] Chr Ethmoidal Sinusitis Feb- 4200 6 Belinda Ryan. 200 [facility] 2[address] Fl, [address], [place], [place], [id number], [place]. tel: [phone] [facility], [address], [place], [place], [id number] , [place] tel: [phone] [facility] Deviated Nasal Septum 3 0200 5 Belinda Ryan. 200 [facility] [address] Fl, [address], [place], [place], [address], [place]. tel: [phone] [facility], [address], [place], [place], [address] , [place] tel: [phone] [facility] Allergic Rhinitis Nos 2 0200 5 Fabian Manriquez. [address], [address], [place], [place], [id number], [place]. tel:[phone] [facility], [address], [place], [place], [address] , [place] tel: [phone] [facility] HeadacheChr Ethmoidal SinusitisAcut e Otitis Externa Nec 0 2200 5 Belinda Ryan. 200 [facility] [address] Fl, [address], [place], [place], [address], [place]. tel: [phone] [facility], [address], [place], [place], [address] , [place] tel: [phone] [facility] Allergic Rhinitis Nos 2200 5 Fabian Manriquez. [address], [address], [place], [place], [id number], [place]. tel:[phone] Referring Provider: Mitra Peralta MD, [address] [facility] 205, [place], [address]. tel:[phone] [facility], [address], [place], [place], [id number] , [place] tel: [phone] [facility] Allergic Rhinitis Nos Oct-2 5 Fabian Manriquez. [address], [facility] 205, [place], [place], [address], [place]. tel:[phone] [facility], [address], [place], [place], [id number] , [place] tel: [phone] [facility] Hypertrph Nasal TurbinatChron ic RhinitisDevia osvaldo Nasal Septum Sep-2 5 Belinda Ryan. [address], [address] [place] [address], [id number], [place]. tel:[phone] [facility], [address], [place], [place], [id number] , [place] tel: [phone] [facility] Allergic Rhinitis Nos Sep-1 5 Fabian Manriquez. [address], [facility] 205, [place], [place], [id number], [place]. tel:[phone] [facility], [address], [place], [place], [address] , [place] tel: [phone] [facility] Hypertrph Nasal TurbinatDevia osvaldo Nasal SeptumChronic RhinitisDysfu nct Eustachian Tube Sep-0 200 5 Belinda Ryan. 200 [facility] [address], [address], [place], [place], [id number], [place]. tel:[phone] [facility], [address], [place], [place], [address] , [place] tel: [phone] [facility] Allergic Rhinitis Nos 5 Fabian Manriquez. [address], [address], [place], [place], [address], [place]. tel:[phone] [facility], [address], [place], [place], [address] , [place] tel: [phone] [facility] Dysfunct Eustachian Tube 5 Belinda Ryan. 200 [facility] [address], [address] [place] [address], [id number], . tel:[phone] [facility], [address], [place], [place], [address] , [place] tel: [phone] [facility] Hypertrph Nasal TurbinatChron ic Rhinitis 5 Belinda Ryan. 200 [facility] [address], [address], [place], [address], [place]. tel:[phone] [facility], [address], [place], [place], [address] , [place] tel: [phone] [facility] Allergic Rhinitis Nos 0 5 Fabian Manriquez. [address], [address], [place], [place], [address], [place]. tel:[phone] [facility], [address], [place], [place], [address] , [place] tel: [phone] [facility] Hypersomni W Sleep ApneaChronic RhinitisDevia osvaldo Nasal Septum 5 Belinda Ryan. 200 [facility] 2[address] Fl, [address], [facility] [place], [id number], [place]. tel:[phone] [facility], [address], [place], [place], [address] , [place] tel: [phone] [facility] Allergic Rhinitis Nos 2-200 5 Fabian Manriquez. [address], [address], [place], [place], [address], [place]. tel:[phone] [facility], [address], [place], [place], [address] , [place] tel: [phone] [facility] Allergic Rhinitis Nos 4-200 5 Fabian Manriquez. [address], [address], [place], [place], [address], [place]. tel:[phone] [facility], [address], [place], [place], [address] , [place] tel: [phone] [facility] Acute Nasopharyngit isChronic Rhinitis May-2 5-200 5 No Information [facility], [address], [place], [place], [address] , [place] tel: [phone] [facility] Allergic Rhinitis Nos May-2 1-200 5 Fabian Manriquez. [address], [address], [place], [place], [address], [place]. tel:[phone] [facility], [address], [place], [place], [address] , [place] tel: [phone] [facility] Allergic Rhinitis Nos Apr-2 1-200 5 Fabian Manriquez. [address], [address], [place], [place], [address], [place]. tel:[phone] [facility], [address], [place], [place], [address] , tel: [phone] [facility] Allergic Rhinitis Nos 5 Fabian Manriquez. [address] , [facility] [address], [place], [address], . [phone] [facility], [address], [place], [place], [address] , tel: [phone] [facility] Allergic Rhinitis Nos 5 Fabian Manriquez. [address] , [facility] 205, [place], [place], [address], [place]. tel:[phone] Family History Family Member Type Diagnosis Age At Onset No Information Payers Payer name Insurance type Covered constitution party ID Authoriza tion(s) No Information Social History [...]
--- NOTE | 2024-05-08 08:28 | A.OFFPC_ITS ---
Intake Visit Reasons: Discuss Results Allergies Corticosteroids (Glucocorticoids) Adverse Reaction (Verified 05/08/24 08:28) rash Medication List - Last Reconciled 05/08/24 by Pasquale Duggan MD ethynodiol diac-eth estradiol 1-50 mg-mcg (Kelnor) tabs PO thyroid (pork) ([place] Thyroid) 60 mg PO DAILY Tobacco use date assessed: 05/08/24 Dental Screening Dental Screen Date: 05/08/24 Did you have a dental visit in the last 12 months?: Yes Did you have a dental problem in the last 6 months where you did not have access to dental care?: No Was dental information given to patient?: Patient has dentist HPI Discuss Results HPI Details History - The patient is a 43-year-old female pr esenting with concerns about prediabetes and hyperlipidemia. - She was unaware of her prediabetes unt il the recent lab results; she acknowledges her cholesterol management attempts. - The patient's LDL measured 158 mg/dL, corroborating her lifelong kimball with hyperlipidemia. - She expresses willingness to implement diet adjustments to manage cholesterol and prediabetes. - Familial history is significant for di abetes, hyperlipidemia, and hypertension in both parents. - Reports previous high blood pressure, last acknowledged in February, but has not monitored it since then. - Understanding of blood pressure tito hall was discussed, with particular att ention to the threshold values for treatment consideration. Problem List - Prediabetes - Hyperlipidemia - Family history of diabetes - Family history of hypertension - Essential Hypertension Patient Instructions - Begin monitoring your blood pressure a t home with a cuff that measures above the elbow and not on the wrist. - Contact the clinic if your blood press ure consistently exceeds 140/90 mmHg. - You will be scheduled to see a nutriti onist to address dietary adjustments for managing cholesterol and prediabetes. - Continue to monitor and be mindful of diet, focusing on balanced nutrition while keeping cholesterol levels in check. Review of Systems - General: No fever no chills - Neurological: No headaches no dizziness - Ear nose throat: No sore throat no hearing difficulty no ear pain - Cardiovascular: No syncope, no chest pain, no palpitations - Gastrointestinal: No nausea vomiting or diarrhea - Endocrine: No polyuria polydipsia no heat intolerance - Genitourinary: No dysuria , no blood in urine PFSH Social History Housing: House Patient Tobacco Use Status: Never used Tobacco e-Cigarette/Vaping Use: Never Used service: No Current occupational status: employed Cognitive needs: No Hearing needs: No Vision needs: Yes Questionnaire Thrive Questionnaire Date Thrive assessed: 05/08/24 AUDIT C Alcohol Use Questionnaire (AUDIT-C) 1. How often do you have a drink containing alcohol?: Never 3. How often do you have six or more drinks on one occasion?: Never Total Score: 0 Score Reviewed/Action Taken: Yes JOVANNY-7 AMB Questionnaire JOVANNY-7 Date JOVANNY - 7 assessed: 03/28/24 Source: Developed by Drs. Rosales Anthony, Megha Barboza, Lázaro Colon and colleagues, with an educational radha from [employer]. Physical exam (Primary Care) Tobacco/Smoking Status: Tobacco use Status Tobacco use date assessed 05/08/24 05/08/24 08:30 Patient Tobacco Use Status Never used Tobacco 05/08/24 08:30 e-Cigarette/Vaping Use Never Used 05/08/24 08:30 Thrive Assessment: Date of Thrive Assessment Date Thrive assessed 05/08/24 05/08/24 08:30 Telehealth Telehealth Telehealth Platform: [employer] Location of provider rendering services: practice address Location of patient: address on file Patient Identification confirmed using: Name, : Yes Telehealth method: voice only Patient verbally consented to treatment: Yes Patient verbally consented to billing insurance company: Yes Patient informed of any privacy concerns related to visit: Yes Minutes spent on Phone/Video with Pt.: 14 Coding Level of Care Code Tele Est Pt Level 3 (98528) Diagnoses Lipid disorder E78.9 Prediabetes R73.03 Family history of hypertension Z82.49 Assessment & Plan Assessment & Plan (1) Lipid disorder: Code(s): E78.9 - Disorder of lipoprotein metabolism, unspecified Category: Medical (2) Prediabetes: Code(s): R73.03 - Prediabetes Category: Medical (3) Family history of hypertension: Code(s): Z82.49 - Family history of ischemic heart disease and other diseases of the circulatory system Category: Medical Plan History - The patient is a 43-year-old female presenting with concerns about prediabetes and hyperlipidemia. - She was unaware of her prediabetes until the recent lab results; she acknowledges her cholesterol management attempts. - The patient's LDL measured 158 mg/dL, corroborating her lifelong kimball with hyperlipidemia. - She expresses willingness to implement diet adjustments to manage cholesterol and prediabetes. - Familial history is significant for diabetes, hyperlipidemia, and hypertension in both parents. - Reports previous high blood pressure, last acknowledged in February, but has not monitored it since then. - Understanding of blood pressure parameters was discussed, with particular attention to the threshold values for treatment consideration. Problem List - Prediabetes - Hyperlipidemia - Family history of diabetes - Family history of hypertension - Essential Hypertension Patient Instructions - Begin monitoring your blood pressure at home with a cuff that measures above the elbow and not on the wrist. - Contact the clinic if your blood pressure consistently exceeds 140/90 mmHg. - You will be scheduled to see a production helper to address dietary adjustments for managing cholesterol and prediabetes. - Continue to monitor and be mindful of diet, focusing on balanced nutrition while keeping cholesterol levels in check. Orders: Referrals Neurology Epilepsy Physician Nutrition Referral E78.9 - Disorder of lipoprotein metabolism, unspecified, R73.03 - Prediabetes
== END 2024-05-08 09:20 | disposition home or self-care (01) ==
LOC: HO.HMCC 08:03
PROVIDERS: PCP Internal Medicine; Visit Provider Internal Medicine
DX: R73.03 Prediabetes (principal); E78.9 Disorder of lipoprotein metabolism, unspecified; Z82.49 Family history of ischemic heart disease and other diseases of the circulatory system

== ENCOUNTER 2024-05-23 09:14 | Outpatient (AMB) | payer OTHER, SELFPAY ==
--- NOTE | 2024-05-23 09:23 | MHC.OFFWIV ---
Intake Vital Signs 05/23/24 09:25 Height 5 ft 7 in Weight 180 lb BMI 28.2 BP 128/80 Blood Pressure Location Lt brachial Position Sitting Pulse 78 Pulse Source Pulse Oximeter Temp 98.2 F Temp Source Oral Pulse Oximetry (%) 98 Oxygen Delivery Method Room Air Intake Visit Reasons: EP ?sinus/congestion, cough Intake Note: Patient here for sinus congestion, cough and fever that has been present since Sunday. Patient Tobacco Use Status: Never used Tobacco Allergies Corticosteroids (Glucocorticoids) Adverse Reaction (Verified 05/23/24 09:25) rash Medication List - Last Reconciled 05/23/24 by Pasquale Duggan MD ethynodiol diac-eth estradiol 1-50 mg-mcg (Kelnor) tabs PO thyroid (pork) ([place] Thyroid) 60 mg PO DAILY Do you need a note to return to daycare/school/sports/work: Yes HPI EP ?sinus/congestion, cough HPI Details History - The patient is a 43-year-old female presenting with upper respiratory tract infection symptoms and sinusitis. - She experienced a fever of 102?F which lasted for three days and has since resolved. - Current symptoms include nasal congestion and a sensation of blocked ears, persisting for the last three days. - Previous history of sinusitis treated with antibiotics, with a noted bright neon yellow discharge. - Persistent symptoms despite partial relief, with colored nasal discharge. - Occupational exposure to children, potentially contributing to infection risk. Problem List - Upper Respiratory Tract Infection - Sinusitis - Hypertension Patient Instructions - Begin the prescribed antibiotic treatment as directed. - Continue monitoring blood pressure, as your recent reading was 120, down from 140. Review of Systems - General: No fever no chills any more - Neurological: No headaches no dizziness - Cardiovascular: No syncope, no chest pain, no palpitations - Gastrointestinal: No nausea vomiting or diarrhea Physical Exam General: No acute distress HEENT: Sinus congestion, ears feel clogged, little bit of inflammation in ears Neck: Supple Respiratory system: Able to talk in full sentences, no audible wheeze SIGNALS COLLECTION TECHNICIAN: Alert awake oriented x3 motor sensory intact Skin: Normal turgor [facility] Social History Housing: House Patient Tobacco Use Status: Never used Tobacco e-Cigarette/Vaping Use: Never Used service: No Current occupational status: employed Cognitive needs: No Hearing needs: No Vision needs: Yes Physical Exam Vital Signs: Last Vital Signs Temp 98.2 F 05/23/24 09:25 Pulse 78 05/23/24 09:25 BP 128/80 05/23/24 09:25 Pulse Ox 98 05/23/24 09:25 Oxygen Delivery Method Room Air 05/23/24 09:25 BMI result Body Mass Index 28.2 Assessment & Plan Assessment & Plan (1) Acute sinus infection: Code(s): J01.90 - Acute sinusitis, unspecified Qualifiers: Sinusitis location: maxillary Recurrence: non-recurrent Qualified Code(s): J01.00 - Acute maxillary sinusitis, unspecified Plan History - The patient is a 43-year-old female presenting with upper respiratory tract infection symptoms and sinusitis. - She experienced a fever of 102?F which lasted for three days and has since resolved. - Current symptoms include nasal congestion and a sensation of blocked ears, persisting for the last three days. - Previous history of sinusitis treated with antibiotics, with a noted bright neon yellow discharge. - Persistent symptoms despite partial relief, with colored nasal discharge. - Occupational exposure to children, potentially contributing to infection risk. Problem List - Upper Respiratory Tract Infection - Sinusitis - Hypertension Patient Instructions - Begin the prescribed antibiotic treatment as directed. - Continue monitoring blood pressure, as your recent reading was 120, down from 140. Medications: New azithromycin Take 2 tablets today then 1 daily 250 mg PO ONCE 5 days 6 tabs 0RF J06.9 - Acute upper respiratory infection, unspecified pseudoephedrine HCl ER (Sudafed 12 Hour) 120 mg PO .q am 3 days 3 tabs 0RF nasal congestion Coding Level of Care Code Est Pt Level 3 (54543) Diagnoses Acute non-recurrent maxillary sinusitis J01.00 Sinusitis location: maxillary Recurrence: non-recurrent
[2024-05-23 09:25] VITALS: BP 128/80; PULSE 78; TEMP 36.8; O2SAT 98; BMI 28.2
== END 2024-05-23 09:43 | disposition home or self-care (01) ==
PROVIDERS: PCP Internal Medicine; Visit Provider Internal Medicine
DX: J01.00 Acute maxillary sinusitis, unspecified (principal)

== ENCOUNTER → 2024-05-23 09:14 | Outpatient (BNVA) | payer OTHER, SELFPAY | PROVIDERS: PCP Internal Medicine; Visit Provider Internal Medicine ==

== ENCOUNTER 2024-10-24 08:36 | Outpatient (REF) | payer OTHER, SELFPAY ==
[2024-10-24 10:07] LABS: MANUAL DIFF FLAG NO
[2024-10-24 10:24] LABS: Hematocrit 41.6 % (37.0-47.0); Hemoglobin 14.1 g/dl (12.0-16.0); Imm Gran Abs Auto 0.03 X10*3/uL (0.00-0.03); Imm Gran Pct Auto 0.4 % (0.0-0.4); Lymphocytes Absolute Auto 2.0 X10*3/uL (1.2-4.9); Mean Corpuscular HGB Conc 33.9 g/dl (31.0-35.0); Mean Corpuscular Hemoglobin 29.7 pg (27.0-33.0); Mean Corpuscular Volume 87.8 fL (80.0-98.0); NRBC Abs Auto 0.000 X10*3/uL (0.0-0.012); NRBC Pct Auto 0.0 /100WBC (0.0-0.2); Platelet Count 358 X10*3/uL (160-400); Red Blood Count 4.74 X10*6/uL (4.20-5.50); White Blood Count 6.9 X10*3/uL (4.8-10.8)
[2024-10-24 10:33] LABS: Total Hemoglobin (HGBA1C) 3602.4114 umol/L
[2024-10-24 11:38] LABS: Alanine Aminotransferase 19 U/L (0-31); Albumin Level 4.3 g/dL (3.5-5.0); Alkaline Phosphatase 53 U/L (39-117); Anion Gap 11 (12-20); Aspartate Amino Transferase 22 U/L (5-31); Blood Urea Nitrogen 15 mg/dL (9-16); Calcium 9.4 mg/dL (8.4-10.2); Carbon Dioxide 25 mmol/L (22-29); Chloride 105 mmol/L (96-108); Estimated Glomerular Filt Rate > 60; Potassium 4.3 mmol/L (3.3-5.1); Sodium 137 mmol/L (135-145); Total Protein 7.1 g/dL (6.5-8.0)
[2024-10-28 18:38] LABS: Thyroglobulin Antibodies <1 IU/mL (< or = 1)
== END 2024-10-24 08:37 | disposition home or self-care (01) ==
LOC: HO.HMGCLDS 08:36
PROVIDERS: PCP Internal Medicine; Visit Provider Internal Medicine
DX: E03.8 Other specified hypothyroidism (principal); E78.9 Disorder of lipoprotein metabolism, unspecified; R73.03 Prediabetes; R21 Rash and other nonspecific skin eruption; M25.541 Pain in joints of right hand; R76.8 Other specified abnormal immunological findings in serum; M25.542 Pain in joints of left hand; M21.41 Flat foot [pes planus] (acquired), right foot; M21.42 Flat foot [pes planus] (acquired), left foot; M79.671 Pain in right foot; M79.672 Pain in left foot
CPT/HCPCS: 36415; 80053; 83036; 83721; 84443; 85025; 86225; 86800

== ENCOUNTER 2024-10-24 08:36 | Outpatient (AMB) | payer OTHER, SELFPAY ==
[2024-10-24 08:42] VITALS: BP 132/80; PULSE 73; O2SAT 98; BMI 29.9
--- NOTE | 2024-10-24 08:42 | A.OFFPC_ITS ---
Vital Signs 10/24/24 08:42 Height 5 ft 7 in Weight 191 lb BMI 29.9 BP 132/80 Blood Pressure Location Lt brachial Position Sitting Pulse 73 Pulse Source Pulse Oximeter Pulse Oximetry (%) 98 Oxygen Delivery Method Room Air Intake Visit Reasons: 6 month F/U Allergies Corticosteroids (Glucocorticoids) Adverse Reaction (Verified 10/24/24 08:42) rash Medication List - Last Reconciled 10/24/24 by Pasquale Duggan MD ascorbate calcium (vitamin C) 500 mg PO DAILY azelastine 2 sprays intranasal BID levocetirizine (Xyzal) 5 mg PO DAILY norethindrone (contraceptive) 0.35 mg PO DAILY thyroid (pork) (Edwards Thyroid) 60 mg PO DAILY Tobacco use date assessed: 05/08/24 Dental Screening Dental Screen Date: 05/08/24 HPI 6 month F/U HPI Details History The patient is a 44-year-old female presenting with management and evaluation of hypothyroidism, prediabetes, elevated LDL, and joint pain. Hypothyroidism: - Diagnosed and currently managed with A rmour Thyroid 60 mcg. - Medications have been stable; last thy roid function test in April of this year. Prediabetes: - Identified as at risk but not currentl y diabetic. - Received dietary counseling, but insur ance issues limited technology resource teacher visits. - Reports behavioral changes in diet hav e been initiated, with previous weight gain now reducing. Joint Pain: - Reports significant pain in thumbs and swelling of hands, along with fatigue - Autoimmune screening previously done w ith unspecified markers, with indications of potential autoimmune condition impacting joints and skin. - Florinda-Rosado virus history mentioned; history of Lyme disease that is resol ed. Patient is established with integrative [facility], and taking supplements for this Elevated LDL: - History of elevated LDL at 158. - Familial hypercholesterolemia and diet harriet irregularities suspected to play a role. 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 - Attempts at dietary modifications for prediabetes management - Reports mold exposure addressed throug h lifestyle modifications and supplements - Lives in [place] and [place] [employer] Family History: - Father: Prediabetes, high cholesterol - Mother: Diabetes, hypertension Problem List - Hypothyroidism - Prediabetes - Hyperlipidemia - Joint pain - Suspected autoimmune disorder Diagnostic results - Labs from April showed LDL cholesterol at [address] [facility] - OBGYN for contraception management Patient Instructions - Follow dietary changes for managing pr ediabetes. - Use ergonomic keyboard setup to minimi ze hand strain. - Apply warmth to hands to reduce joint discomfort. - Continue current medications as prescr ibed. - lab order placed to be done today Follow-up 6 months Review of Systems General: No fever no chills neurological: No headaches no dizziness ear nose throat: No sore throat no hearing difficulty no ear pain cardiovascular: No syncope, no chest pain, no palpitations gastrointestinal: No nausea vomiting or diarrhea endocrine: No polyuria polydipsia no heat intolerance genitourinary: No dysuria Physical Exam general: No acute distress HEENT: No acute findings neck: Supple respiratory system: Able to talk in full sentences, no audible wheeze no stridor cardiovascular: S1-S2 RRR gastrointestinal: No pain extremities: Pain in thumbs, hands small joints but full range of motion PATHOLOGY SECRETARY/TRANSCRIPTIONIST: Alert awake oriented x3 motor sensory intact skin: Normal turgor, redness noted on cheeks [facility] Social History Housing: House Patient Tobacco Use Status: Never used Tobacco e-Cigarette/Vaping Use: Never Used service: No Current occupational status: employed Cognitive needs: No Hearing needs: No Vision needs: Yes Questionnaire Thrive Questionnaire Date Thrive assessed: 03/28/24 I am a: Patient What is your living situation today?: I have a steady place to live Within the past 12 months, did the food you bought not last and you didn't have the money to get more?: Never true Within the past 12 months, did you worry whether your food would run out before you got money to buy more?: Never true Do you have trouble paying for medicines?: No Do you have trouble getting transportation to medical appointments?: No Do you have trouble paying your heating and electricity bill?: No Do you have trouble taking care of your child, family member or friend?: No Do you have trouble with day-to-day activities such as bathing, preparing meals, shopping, managing finances, etc.?: No Are you currently unemployed and looking for a job?: No Are you interested in more education?: No Please select the resources that you would like help with: None Currently or been in a relationship where the following occur: No concerns reported THRIVE Score: 0 JOVANNY-7 AMB Questionnaire JOVANNY-7 Date JOVANNY - 7 assessed: 03/28/24 Source: Developed by Drs. Rosales Anthony, Megha Barboza, Lázaro Colon and colleagues, with an educational radha from [employer]. Physical exam (Primary Care) Vital Signs: Last Vital Signs Pulse 73 10/24/24 08:42 BP 132/80 10/24/24 08:42 Pulse Ox 98 10/24/24 08:42 Oxygen Delivery Method Room Air 10/24/24 08:42 BMI result Body Mass Index 29.9 Tobacco/Smoking Status: Tobacco use Status Tobacco use date assessed 05/08/24 10/24/24 08:45 Patient Tobacco Use Status Never used Tobacco 10/24/24 08:45 e-Cigarette/Vaping Use Never Used 10/24/24 08:45 Thrive Assessment: Date of Thrive Assessment Date Thrive assessed 03/28/24 10/24/24 08:45 Currently or been in a relationship where the following occur: No concerns reported Coding Level of Care Code Est Pt Level 4 (37541) Diagnoses Other specified hypothyroidism E03.8 Lipid disorder E78.9 Prediabetes R73.03 Arthralgia of both hands M25.541; M25.542 Joint pain location: hand Laterality: bilateral Facial rash R21 Flat feet, bilateral M21.41; M21.42 Pain in both feet M79.671; M79.672 Assessment & Plan Assessment & Plan (1) Other specified hypothyroidism: Code(s): E03.8 - Other specified hypothyroidism Category: Medical (2) Lipid disorder: Code(s): E78.9 - Disorder of lipoprotein metabolism, unspecified Category: Medical (3) Prediabetes: Code(s): R73.03 - Prediabetes Category: Medical (4) Joint pain: Code(s): M25.50 - Pain in unspecified joint Category: Medical Qualifiers: Joint pain location: hand Laterality: bilateral Qualified Code(s): M25.541 - Pain in joints of right hand; M25.542 - Pain in joints of left hand (5) Facial rash: Code(s): R21 - Rash and other nonspecific skin eruption Category: Medical (6) Flat feet, bilateral: Code(s): M21.41 - Flat foot [pes planus] (acquired), right foot; M21.42 - Flat foot [pes planus] (acquired), left foot Category: Medical (7) Pain in both feet: Code(s): M79.671 - Pain in right foot; M79.672 - Pain in left foot Category: Medical Plan History The patient is a 44-year-old female presenting with management and evaluation of hypothyroidism, prediabetes, elevated LDL, and joint pain. Hypothyroidism: - Diagnosed and currently managed with Edwards Thyroid 60 mcg. - Medications have been stable; last thyroid function test in April of this year. Prediabetes: - Identified as at risk but not currently diabetic. - Received dietary counseling, but insurance issues limited technology resource teacher visits. - Reports behavioral changes in diet have been initiated, with previous weight gain now reducing. Joint Pain: - Reports significant pain in thumbs and swelling of hands, along with fatigue - Autoimmune screening previously done with unspecified markers, with indications of potential autoimmune condition impacting joints and skin. - Florinda-Rosado virus history mentioned; history of Lyme disease that is resolved. Patient is established with [facility], and taking supplements for this Elevated LDL: - History of elevated LDL at 158. - Familial hypercholesterolemia and dietary irregularities suspected to play a role. 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 - Attempts at dietary modifications for prediabetes management - Reports mold exposure addressed through lifestyle modifications and supplements - Lives in [place] and works in [place] Family History: - Father: Prediabetes, high cholesterol - Mother: Diabetes, hypertension Problem List - Hypothyroidism - Prediabetes - Hyperlipidemia - Joint pain - Suspected autoimmune disorder - flat feet causing pain need referral to Podiatry for proper foot wear Diagnostic results - Labs from April showed LDL cholesterol at [address] [facility] - OBGYN for contraception management Patient Instructions - Follow dietary changes for managing prediabetes. - Use ergonomic keyboard setup to minimize hand strain. - Apply warmth to hands to reduce joint discomfort. - Continue current medications as prescribed. - lab order placed to be done today - referral to podiatry placed Follow-up 6 months Orders: Orders Complete Blood Count Auto Diff Today E03.8 - Other specified hypothyroidism, E78.9 - Disorder of lipoprotein metabolism, unspecified, R73.03 - Prediabetes Hemoglobin A1c Today E03.8 - Other specified hypothyroidism, E78.9 - Disorder of lipoprotein metabolism, unspecified, R73.03 - Prediabetes Comprehensive Met. Panel Today E03.8 - Other specified hypothyroidism, E78.9 - Disorder of lipoprotein metabolism, unspecified, R73.03 - Prediabetes LDL Cholesterol Direct Today E03.8 - Other specified hypothyroidism, E78.9 - Disorder of lipoprotein metabolism, unspecified, R73.03 - Prediabetes TSH reflex Free T4 Today E03.8 - Other specified hypothyroidism, E78.9 - Disorder of lipoprotein metabolism, unspecified, R73.03 - Prediabetes Thyroglobulin Antibodies Today E03.8 - Other specified hypothyroidism, E78.9 - Disorder of lipoprotein metabolism, unspecified, R73.03 - Prediabetes Anti DNA DS Antibody Today M25.50 - Pain in unspecified joint, R21 - Rash and other nonspecific skin eruption, R76.8 - Other specified abnormal immunological findings in serum Referrals Podiatry Referral M21.41 - Flat foot [pes planus] (acquired), right foot, M21.42 - Flat foot [pes planus] (acquired), left foot, M79.671 - Pain in right foot, M79.672 - Pain in left foot
--- OUTSIDE RECORDS SUMMARY | 2024-10-24 09:33 | XMS_ITS | Clinical Summary ---
Author Organization [facility] [address] [facility] [address] Address [address] [place] [address] Phone Care Team Providers Care New Accounts Representative Name Role Phone Leigh Ann Mitchell MD Primary Care Provider [phone] Allergies Active Allergy Reactions Criticality Noted Date [...] FOR UP TO 7 DAYS. 07/01/2023 Active norethindrone (CHING,Ginger MATUTE MICRONOR ) 0.35 mg tablet Take 1 tablet (0.35 mg total) by mouth 1 (one) time each day. 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 For example, child welfare specialist or elderly care for an older adult? [...] Last Done Comments Breast Cancer Screening 1979 Colorectal Cancer Screening: Colonoscopy 01/29/2022 HIV Screening 01/29/2022 COVID-19 Vaccine ( season) 2023 11/27/2021, 09/06/2021, 12/18/2020, Additional history exists Influenza Vaccine (#1) 2024 , 11/27/2021, 11/13/2020, Additional history exists Social Influencers of Health Screening 02/28/2025 02/29/2024 Cervical Cancer Screening: HPV 08/10/2025 08/10/2020 DTaP,Tdap,and Td Vaccines (4 - Td or Tdap) 07/28/2026 07/28/2016, 05/04/2011, 05/19/2005 Cholesterol Screening (Lipid Panel) 09/22/2027 09/21/2022 IPV Vaccines Completed 08/22/1984, 12/28, 1979, Additional history exists MMR Vaccines Completed 10/29/1991, 10/19/1980 Hepatitis B Vaccines Completed 01/13/2007, 04/23/1995, 09/13/1994, Additional history exists Hepatitis C Screening Completed 01/13/2007 Depression Screening Completed 02/29/2024, 06/06/19 HIB Vaccines Aged Out No longer eligi [...] age to complete this topic Meningococcal B Vaccine Aged Out No l onger eligible based on patient's age to complete this topic Pneumococcal Vaccine: Pediatrics (0 to 5 Years) and At-Risk Patients (6 to 49 Years) Aged Out No longer eligible based [...] Health Maintenance Results * Depression Screening (06/06/2023) [facility] Depression Screening abstracted [facility] Provider HEALTH MAINTENANCE Final Result * (ABNORMAL) Lipid panel (09/21/2022) [facility] LDL/HDL Ratio 3 0 - 4 Triglycerides 174(A) 0 - 150 mg/dL Cholesterol 227(A) 0 - 200 mg/dL HDL 78 >=40 mg/dL LDL Cholesterol 115(A) 0 - 100 mg/dL Blood Venous blood specimen / Unknown [facility] Provider LAB BLOOD ORDERABLES Ghada l Result * Cervical Cancer Screening: HPV (08/10/2020) [facility] Cervical Cancer Screening: HPV negative interpretation abstracted [facility] Provider HEALTH MAINTENANCE Final Result * Hepatitis C Screening (01/13/2007) [facility] Hepatitis C Screening negative interpretation abstracted us Historical Provider HEALTH MAINTENANCE Final Result from Last 3 Months or Most Recently Relevant to Health Maintenance Insurance [facility] Care Teams New Accounts Representative Relationship Specialty Start Date End Date Leigh Ann Mitchell MD PCP - General 08/13/23
--- OUTSIDE RECORDS SUMMARY | 2024-10-24 09:33 | XMS_ITS ---
Author Name [facility] Organization Unknown Care Team Organization Name Specialty Phone Email Start Date End Da te [facility] Luci Deleon DO Primary Care 01/03/202209/26
--- OUTSIDE RECORDS SUMMARY | 2024-10-24 09:33 | XMS_ITS | Patient Health Record ---
[facility] Address [address] [place] [address] Care Team Providers Care Wood Getter Name Role Phone Tumacacori Myrna VAZQUEZ, Meliza Primary Care Provider Unavailable Christi Gilbert Unavailable [phone] Allergies Allergen (clinical drug ingredient) Drug/Non Drug Allergy documented on EMR Reaction Allergy Type Onset Date Status Cortisol rash Drug Allergy Active Reason For Referral No Information Medications Medication SIG (Take, Route, Frequency, Duration) Notes Start Date End Date Status OT Refurbishment Refurbish with full length extensions Diagnosis Pes Planus 01/28/2020 Active [place] Thyroid 60 MG 1 tablet on an empty stomach Orally Once a day; Duration: 30 day(s) Active Levocetirizine-Loratadi ne generic name to: Xzyal Active Social History Tobacco Use: Social History Observation Description Date Details (start date - stop date) Never Smoker NA - NA Tobacco Use/Smoking Question Answer Notes Are you a: nonsmoker Additional Findings: Tobacco Non-User Current no n-smoker Alcohol Screen Question Answer Notes Did you have a drink containing alcohol in the p ast year? No Points 0 Interpretation Negative Tobacco use other than smoking: Question Answer Notes Are you an other tobacco user? No Plan Of Treatment No Information Insurance Providers Payer Name Payer Address Payer Phone Subscriber Number Group Number Insured Name Patient Relationship to Insured Coverage Start Date Coverage End Date [employer] [address] [place]ine, [place] [phone] [id number] Bere Gregg Self - patient is the insured Medical (General) History Medical History History ICD Code thyroid Chicken pox Surgical History Surgery Date(Month/Year) Left ankle surgery
== END 2024-10-24 09:34 | disposition home or self-care (01) ==
LOC: HO.HMCC 08:36
PROVIDERS: PCP Internal Medicine; Visit Provider Internal Medicine
DX: E03.8 Other specified hypothyroidism (principal); E78.9 Disorder of lipoprotein metabolism, unspecified; R73.03 Prediabetes; M25.541 Pain in joints of right hand; M25.542 Pain in joints of left hand; R21 Rash and other nonspecific skin eruption; M21.41 Flat foot [pes planus] (acquired), right foot; M21.42 Flat foot [pes planus] (acquired), left foot; M79.671 Pain in right foot; M79.672 Pain in left foot

== ENCOUNTER 2024-11-20 13:10 | Outpatient (AMB) | payer OTHER, SELFPAY ==
--- NOTE | 2024-11-20 13:21 | A.OFFVIS_ITS ---
Vital Signs 11/20/24 13:24 Height 5 ft 7 in Weight 185 lb BMI 29.0 Intake Visit Reasons: bilateral flat feet, Bilateral foot pain Intake Note: Bere is a 44 year old female who presents today as a new patient for an evaluation of her bilateral foot pain and flat feet. She mentions she has had the pain for over 3 years. Patient states that if she does not wear her or thotics she begins to have pain in the arch of the foot, she also states she has left heel pain. She has HX of left ankle surgery when she was in high school. 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 Patient is looking to get new orthotics. Allergies Corticosteroids (Glucocorticoids) Adverse Reaction (Verified 11/20/24 13:28) rash HPI Comments Details: The patient is a 44-year-old female with a past medical history as seen below presenting with bilateral foot pain and improper gait. She reports that her current custom orthotics are very old and have been refurbished multiple times, indicating a need for replacement. The patient describes a history of her left foot rolling while walking, which has led to muscle strain on the lateral aspect of her left lower extremity. Approximately three and a half years ago, the patient experienced a significant injury to her left ankle, resulting in ligament damage that required repositioning. She has since experienced instability in the left ankle, particularly when walking, which she describes as feeling like walking on the side of her foot. The patient also reports lower back and hip pain, which she attributes to compensatory mechanisms due to her altered gait. She has not had any recent imaging studies but acknowledges that her gait issues may be contributing to her musculoskeletal discomfort. 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 - Musculoskeletal: Reports bilateral foot pain and instability in the left ankle. Denies recent injuries. - Musculoskeletal: Reports lower back and hip pain associated with gait issues. All systems reviewed & are unremarkable except as noted in HPI and below Physical Exam Vital Signs: BMI result Body Mass Index 29.0 Extrem Other: Bilateral lower extremity focused physical exam: Derm: No open lesions abrasions or wounds noted. Skin supple and turgor within normal limits. No ecchymosis or discoloration noted. No hyperkeratotic lesions noted. Toenails noted to be within normal limits. No clinical signs of infection. Vascular: DP/PT pulses palpable. Capillary refill time less than 3 seconds. Temperature gradient warm to warm. No varicosities noted. No edema noted. Pedal hair absent. Neuro: Protective sensation is grossly intact. MSK: Silfveskiold test reveals gastrocsoleus equinus to the left. Limb length discrepancy noted with left lower extremity shorter than right. Antalgic gait unassisted noted. Positive too many toe signs bilaterally. Cavus foot type upon rest with severe Collapse of arches bilaterally upon weight-bearing. Negative anterior drawer test bilaterally. No crepitus noted. Range of motion of the forefoot hindfoot and ankles within normal limits with mild pain noted upon inversion of the left foot/ankle. No pain on palpation along the site of posterior tibial tendon. MMT 5/5. No pain on palpation to bilateral heels. Gait exam exhibited limb length discrepancy as well as increased pronation bilaterally worse to the left. Results Reviewed Results Reviewed: Plan to order bilateral foot x-rays and left ankle x-rays. Patient opts for a delay in imaging due to change of insurances. Assessment & Plan Assessment & Plan (1) Leg length discrepancy: Code(s): M21.70 - Unequal limb length (acquired), unspecified site Category: Medical (2) Collapsed arches: Code(s): M21.40 - Flat foot [pes planus] (acquired), unspecified foot Category: Medical Qualifiers: Laterality: bilateral Qualified Code(s): M21.41 - Flat foot [pes planus] (acquired), right foot; M21.42 - Flat foot [pes planus] (acquired), left foot (3) Pain in both feet: Code(s): M79.671 - Pain in right foot; M79.672 - Pain in left foot Category: Medical (4) Chronic instability of ankle: Code(s): M25.373 - Other instability, unspecified ankle Category: Medical (5) Left ankle pain: Code(s): M25.572 - Pain in left ankle and joints of left foot Category: Medical Qualifiers: Chronicity: chronic Qualified Code(s): M25.572 - Pain in left ankle and joints of left foot; G89.29 - Other chronic pain (6) Pronation deformity of both feet: Code(s): M21.6X1 - Other acquired deformities of right foot; M21.6X2 - Other acquired deformities of left foot Category: Medical (7) Gastrocnemius equinus of left lower extremity: Code(s): M62.462 - Contracture of muscle, left lower leg Category: Medical (8) Achilles tendon contracture, left: Code(s): M67.02 - Short Achilles tendon (acquired), left ankle Category: Medical Plan Patient was informed and verbally consented to the use of an ambient scribe for clinic note documentation during this visit. I discussed with the patient the importance of obtaining new orthotics to correct her gait and alleviate foot pain. We talked about the benefits of using a lace-up brace for her left ankle to provide stability and prevent further injury. I explained the potential need for future imaging to evaluate her foot and ankle structure, which will be planned once her insurance transition is resolved. We also discussed the importance of wearing supportive footwear at home to prevent exacerbation of her symptoms. - Prescribed new custom orthotics to address improper gait and provide arch support - [facility]. - Recommended a lace-up brace for the left ankle to enhance stability and prevent further injury - provided patient with brace in the office. - Advised against walking barefoot and recommend wearing supportive slippers at home. - Plan for future imaging of the feet and left ankle to assess structural issues once insurance transition is confirmed. - Continue with stretching exercises from previous PT sessions. Patient is to return to the clinic in 6 weeks for re-evaluation of custom orthotics & symptoms. Coding Level of Care Code New Pt Level 4 (91058) Diagnoses Leg length discrepancy M21.70 Pes planus of both feet M21.41; M21.42 Laterality: bilateral Pain in both feet M79.671; M79.672 Chronic instability of ankle M25.373 Chronic pain of left ankle M25.572; G89.29 Chronicity: chronic Pronation deformity of both feet M21.6X1; M21.6X2 Gastrocnemius equinus of left lower extremity M62.462 Achilles tendon contracture, left M67.02 Time Spent (min) 50
[2024-11-20 13:24] VITALS: BMI 29.0
--- OUTSIDE RECORDS SUMMARY | 2024-11-20 17:51 | XMS_ITS | Patient Health Record ---
[facility] Address [address] [place] [address] Care Team Providers Care Manager Custom Name Role Phone [place] Myrna VAZQUEZ, Meliza Primary Care Provider Unavailable Christi Gilbert Unavailable [phone] Allergies Allergen (clinical drug ingredient) Drug/Non Drug Allergy documented on EMR Reaction Allergy Type Onset Date Status Cortisol rash Drug Allergy Active Reason For Referral No Information Medications Medication SIG (Take, Route, Frequency, Duration) Notes Start Date End Date Status OT Refurbishment Refurbish with full length extensions Diagnosis Pes Planus 01/28/2020 Active [place] Thyroid 60 MG 1 tablet on an [...] Date Coverage End Date C[employer]a [address] [place], [place] [address] [phone] [id number] Bere Gregg Self - patient is the insured Medical (General) History Medical History History ICD Code thyroid Chicken pox Surgical History Surgery Date(Month/Year) Left ankle surgery
== END 2024-11-20 13:57 | disposition home or self-care (01) ==
LOC: HO.HPODS 13:11
PROVIDERS: PCP Internal Medicine; Visit Provider Student in an Organized Health Care Education/Training Program
DX: M21.70 Unequal limb length (acquired), unspecified site (principal); M21.41 Flat foot [pes planus] (acquired), right foot; M21.42 Flat foot [pes planus] (acquired), left foot; M79.671 Pain in right foot; M79.672 Pain in left foot; M25.373 Other instability, unspecified ankle; M25.572 Pain in left ankle and joints of left foot; G89.29 Other chronic pain; M21.6X1 Other acquired deformities of right foot; M21.6X2 Other acquired deformities of left foot; M62.462 Contracture of muscle, left lower leg; M67.02 Short Achilles tendon (acquired), left ankle
CPT/HCPCS: 99204

== ENCOUNTER 2025-01-09 14:35 | Outpatient (AMB) | payer OTHER, SELFPAY ==
[2025-01-09 14:44] VITALS: BP 130/80; PULSE 77; O2SAT 97; BMI 30.7
--- NOTE | 2025-01-09 14:44 | A.OFFPC_ITS ---
Vital Signs 01/09/25 14:44 Height 5 ft 7 in Weight 196 lb BMI 30.7 BP 130/80 Blood Pressure Location Lt brachial Position Sitting Pulse 77 Pulse Source Pulse Oximeter Pulse Oximetry (%) 97 Intake Visit Reasons: both thumbs pain Allergies Corticosteroids (Glucocorticoids) Adverse Reaction (Verified 01/09/25 14:44) rash Medication List - Last Reconciled 01/09/25 by Pasquale Duggan MD ascorbate calcium (vitamin C) 500 mg PO DAILY azelastine 2 sprays intranasal BID levocetirizine (Xyzal) 5 mg PO DAILY norethindrone (contraceptive) 0.35 mg PO DAILY thyroid (pork) ([place] Thyroid) 60 mg PO DAILY Tobacco use date assessed: 05/08/24 Dental Screening Dental Screen Date: 05/08/24 HPI both thumbs pain HPI Details History of Present Illness The patient is a 44-year-old female presenting with worsening bilateral thumb pain. Thumb tendinitis: - The patient reports worsening pain in both thumbs, with the left thumb being more severely affected. - She describes the pain as intense and sharp if she accidentally bumps her thumb, comparing it to hitting her funny bone. 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 - She has not taken any medication for t he pain. - The patient reports a history of devel oping a rash from oral corticosteroids. - She has previously received cortisone injections in her feet for an unrelated issue and dislikes them. Problem List - Thumb tendinitis left more than right Plan - Prescribed a non-corticosteroid anti-i nflammatory medication to be taken twice a day with food for 14 days, with instructions to taper to once daily as symptoms improve before stopping. - Placed a referral for occupational the rapy to address thumb tendinitis, with the possibility of fabricating a splint for immobilization. - Advised the patient to prevent or avoi d activities that cause the pain. - The patient declined a cortisone injec tion as a treatment option due to a prior negative experience. - The prescription for diclofenic 75 mg , 28 tablets will be sent to [facility] on [facility]. Review of Systems - General: No fever no chills - Neurological: No headaches no dizziness - Ear nose throat: No sore throat no hearing difficulty no ear pain - Cardiovascular: No syncope, no chest pain, no palpitations - Gastrointestinal: No nausea vomiting or diarrhea - Endocrine: No polyuria polydipsia no heat intolerance - Genitourinary: No dysuria , no blood in urine Physical Exam General: No acute distress HEENT: No acute findings Neck: Supple Respiratory system: Able to talk in full sentences, no audible wheeze Gastrointestinal: No pain Extremities: Tenderness in thumbs left more than right, more so with active extension, sensory vascular intact PULLEY WORKER: Alert awake oriented x3 motor intact Skin: Normal turgor [facility] Medical History Achilles tendon contracture, 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 Left ankle pain Chronic instability of ankle Collapsed arches Leg length discrepancy Social History Housing: House Patient Tobacco Use Status: Never used Tobacco e-Cigarette/Vaping Use: Never Used service: No Current occupational status: employed Cognitive needs: No Hearing needs: No Vision needs: Yes Questionnaire Thrive Questionnaire Date Thrive assessed: 03/28/24 I am a: Patient What is your living situation today?: I have a steady place to live Within the past 12 months, did the food you bought not last and you didn't have the money to get more?: Never true Within the past 12 months, did you worry whether your food would run out before you got money to buy more?: Never true Do you have trouble paying for medicines?: No Do you have trouble getting transportation to medical appointments?: No Do you have trouble paying your heating and electricity bill?: No Do you have trouble taking care of your child, family member or friend?: No Do you have trouble with day-to-day activities such as bathing, preparing meals, shopping, managing finances, etc.?: No Are you currently unemployed and looking for a job?: No Are you interested in more education?: No Please select the resources that you would like help with: None Currently or been in a relationship where the following occur: No concerns reported THRIVE Score: 0 JOVANNY-7 AMB Questionnaire JOVANNY-7 Date JOVANNY - 7 assessed: 03/28/24 Source: Developed by Drs. Rosales Anthony, Megha Barboza, Lázaro Colon and colleagues, with an educational radha from [employer]. Physical exam (Primary Care) Vital Signs: Last Vital Signs Pulse 77 01/09/25 14:44 BP 130/80 01/09/25 14:44 Pulse Ox 97 01/09/25 14:44 BMI result Body Mass Index 30.7 Tobacco/Smoking Status: Tobacco use Status Tobacco use date assessed 05/08/24 01/09/25 14:46 Patient Tobacco Use Status Never used Tobacco 01/09/25 14:46 e-Cigarette/Vaping Use Never Used 01/09/25 14:46 Thrive Assessment: Date of Thrive Assessment Date Thrive assessed 03/28/24 01/09/25 14:46 Currently or been in a relationship where the following occur: No concerns reported Coding Level of Care Code Est Pt Level 3 (58720) Diagnoses Thumb tendonitis M77.8 Assessment & Plan Assessment & Plan (1) Thumb tendonitis: Code(s): M77.8 - Other enthesopathies, not elsewhere classified Category: Medical Plan Thumb tendinitis: - The patient reports worsening pain in both thumbs, with the left thumb being more severely affected. - She describes the pain as intense and sharp if she accidentally bumps her thumb, comparing it to hitting her funny bone. 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 - She has not taken any medication for the pain. - The patient reports a history of developing a rash from oral corticosteroids. - She has previously received cortisone injections in her feet for an unrelated issue and dislikes them. Problem List - Thumb tendinitis left more than right Plan - Prescribed a non-corticosteroid anti-inflammatory medication to be taken twice a day with food for 14 days, with instructions to taper to once daily as symptoms improve before stopping. - Placed a referral for occupational therapy to address thumb tendinitis, with the possibility of fabricating a splint for immobilization. - Advised the patient to prevent or avoid activities that cause the pain. - The patient declined a cortisone injection as a treatment option due to a prior negative experience. - The prescription for diclofenic 75 mg , 28 tablets will be sent to [facility] on [facility]. Orders: Orders OT Evaluation and Treatment 01/09/25 M77.8 - Other enthesopathies, not elsewhere classified Medications: New diclofenac sodium take it with food 75 mg PO BID 28 tabs 0RF pain 14 days
--- OUTSIDE RECORDS SUMMARY | 2025-01-09 21:37 | XMS_ITS | Clinical Summary ---
Author Organization [facility] [address] [facility] [address] Address [address] [place] [address] Phone Care Team Providers Care Pantry Goods Maker Name Role Phone Leigh Ann Mitchell MD Primary Care Provider [phone] Allergies Active Allergy Reactions Criticality Noted Date [...] sinusitis 05/19/2005 Overview (01/18/2024): IMO update Immunizations Immunization Administration Dates Next Due Hep B, Unspecified 01/13/2007 Hepatitis B (Ogrtitb-S-Bccba , Recombivax HB-Adult) 19yo and older 04/23/1995,09/13/1994,07/10/1994 [...] COMMENT: Childhood onset. 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 For example, child psychologist or elderly care for an older adult? [...] Date Recorded What is your living situation? Unrecognized valu e 02/29/2024 Comments Unknown Sex and Gender Information [...] 06/06/2023 2:53 PM EDT Plan of Treatment Upcoming Encounters Date Type Department Care Team (Late st Contact Info) Description 05/21/2025 10:00 AM EDT Office Visit Obstetrics & Gynecology - [address] [phone] Chichi Velásquez, [facility] [address] [place] [address] Health Maintenance Due Date Last Done Comments Breast Cancer Screening 1979 Colorectal Cancer Screening: Colonoscopy 1979 HPV Vaccines (1 - 3-dose SCDM series) 07/18/2006 HIV Screening 01/29/2022 COVID-19 Vaccine ( season) 2024 11/27/2021, 09/06/2021, 12/18/2020, Additional history exists Influenza Vaccine (#1) 2024 3, 11/27/2021, 11/13/2020, Additional history exists Social Influencers of Health Screening 02/28/2025 02/29/2024 Cervical Cancer Screening: HPV 08/10/2025 08/10/2020 DTaP,Tdap,and Td Vaccines (4 - Td or Tdap) 07/28/2026 07/28/2016, 05/04/2011, 05/19/2005 Cholesterol Screening (Lipid Panel) 09/22/2027 09/21/2022 RSV Immunization Adult Patients (1 - 1-dose 75+ series) 07/18/2054 IPV Vaccines Completed 08/22/1984, 12/28, 1979, Additional [...] Health Maintenance Results * Depression Screening (06/06/2023) Pathologist [facility] Depression Screening abstracted us Historical Provider HEALTH MAINTENANCE Final Result * (ABNORMAL) Lipid panel (09/21/2022) Pathologist [facility] LDL/HDL Ratio 3 0 - 4 Triglycerides 174(A) 0 - 150 mg/dL Cholesterol 227(A) 0 - 200 mg/dL HDL 78 >=40 mg/dL LDL Cholesterol 115(A) 0 - 100 mg/dL Blood Venous blood specimen / Unknown Historical Provider LAB BLOOD ORDERABLES Ghada l Result * Cervical Cancer Screening: HPV (08/10/2020) Pathologist [facility] Cervical Cancer Screening: HPV negative interpretation abstracted Historical Provider HEALTH MAINTENANCE Final Result * Hepatitis C Screening (01/13/2007) Pathologist [facility] Hepatitis C Screening negative interpretation abstracted Historical Provider HEALTH MAINTENANCE Final Result from Last 3 Months or Most Recently Relevant to Health Maintenance Insurance [facility] Care Teams Pantry Goods Maker Relationship Specialty Start Date End Date Leigh Ann Mitchell MD PCP - General 08/13/23
--- OUTSIDE RECORDS SUMMARY | 2025-01-09 21:37 | XMS_ITS | Patient Health Record ---
[facility] Address [address] [place] [address] Care Team Providers Care Tag Writer Name Role Phone [place] Myrna VAZQUEZ, Meliza Primary Care Provider Unavailable Christi Gilbert Unavailable [phone] Allergies Allergen (clinical drug ingredient) Drug/Non Drug Allergy documented on EMR Reaction Allergy Type Onset Date Status Cortisol rash Drug Allergy Active Reason For Referral No Information Medications Medication SIG (Take, Route, Frequency, Duration) Notes Start Date End Date Status OT Refurbishment Refurbish with full length extensions Diagnosis Pes Planus 01/28/2020 Active [place] Thyroid 60 MG 1 tablet on an [...] Date Coverage End Date C[employer]a [address] [place], [place] [phone] [id number] Bere Gregg Self - patient is the insured Medical (General) History Medical History History ICD Code thyroid Chicken pox Surgical History Surgery Date(Month/Year) Left ankle surgery
== END 2025-01-09 15:13 | disposition home or self-care (01) ==
LOC: HO.HMCC 14:36
PROVIDERS: PCP Internal Medicine; Visit Provider Internal Medicine
DX: M77.8 Other enthesopathies, not elsewhere classified (principal)